=== PATIENT | female | born 1995 | race African-American/Black ===

== ENCOUNTER 2020-05-10 12:51 | Emergency (ER) | payer MEDICAID, SELFPAY ==
[2020-05-10] VITALS (11 sets, daily range): BP systolic 100–121; BP diastolic 49–80; PULSE 71–85; RESP 16–22; TEMP 36.6–37.2; O2SAT 100; BMI 34.4
--- NOTE | 2020-05-10 14:29 | ECG_ITS ---
Test Reason : HART Blood Pressure : / mmHG Vent. Rate : 079 BPM Atrial Rate : 079 BPM P-R Int : 118 ms QRS Dur : 084 ms QT Int : 382 ms P-R-T Axes : 013 025 007 degrees QTc Int : 438 ms Normal sinus rhythm Normal ECG No previous ECGs available Referred By: My Gutierrez Electronically Signed By:ZANDRA ANDRES
--- NOTE | 2020-05-10 14:46 | ED.FEMALEGU ---
HPI - Female Genitourinary General Chief complaint: Vaginal Bleeding Stated complaint: vag bleed Time Seen by Provider: 05/10/20 14:21 Source: patient Limitations: no limitations History of Present Illness HPI Narrative: 24-year-old female to male transgender here with complaints of vaginal bleeding for the last month. Patient tells me she has been using 2-3 pads per day bright red bleeding with clots. She has some bilateral lower pelvic cramping that is associated with this. She also is feeling lightheaded with position changes, some dyspnea on exertion and palpitations. Sexually active females only. No concern for . History of heavy and irregular bleeding in the past requiring blood transfusion. Did have a Nexplanon in place but this was removed 2 years ago. Since then she has had irregular bleeding but this has not been heavy until this month. She had been taking testosterone but stopped this approximately 1 year ago. Last Pap smear 2020 and reportedly normal. MD elicited complaint: vaginal bleeding Onset (ago): month(s) (1 month ) Severity: mild Vaginal bleeding: moderate, bright red and clots Associated symptoms: abdominal pain, shortness of breath and weakness Sexual activity: Yes Patient : No Related Data Previous Rx's Medication Instructions Recorded ferrous sulfate 325 mg PO DAILY #30 tab 05/10/20 medroxyprogesterone [Provera] 10 mg PO DAILY 14 Days #14 tab 05/10/20 Allergies Allergy/AdvReac Type Severity Reaction Status Date / Time No Known Allergies Allergy Unverified 01/04/20 18:06 Review of Systems Review of Systems: Yes all other systems are reviewed and are negative Constitutional: Constitutional: Reports no additional constitutional complaints, Denies body ache(s), Denies chills, Denies fever(s), Denies headache(s) and Denies weakness Eyes: Eyes: Reports no additional eye complaints and Denies change in vision ENT: Reports system reviewed and no additional complaints, except as documented, Reports dizziness (lightheadeness ), Denies headache(s), Denies nasal congestion, Denies nasal discharge and Denies neck pain Cardiovascular: Cardiovascular: Reports no additional cardiovascular complaints, Denies chest pain, Denies leg edema, Reports palpitations, Denies dyspnea and Reports dyspnea on exertion Respiratory: Respiratory: Reports no additional respiratory complaints, Denies cough, Denies dyspnea and Reports dyspnea on exertion Gastrointestinal: Gastrointestinal: Reports no additional gastrointestinal complaints, Denies abdominal pain, Denies diarrhea, Denies nausea and Denies vomiting Genitourinary: Genitourinary: Reports no additional female genitourinary complaints, Reports abnormal vaginal bleeding, Denies dysuria, Reports pelvic pain, Denies urinary incontinence, Denies vaginal discharge, Denies vaginal odor and Denies vaginal pruritus Musculoskeletal: Musculoskeletal: Reports no additional musculoskeletal complaints, Denies back pain, Denies arthralgias, Denies joint swelling, Denies neck pain, Denies numbness and Denies tingling Integumentary/Breasts: Skin/Breast: Reports system reviewed and no additional complaints, except as docu and Denies rash Neurologic: Reports system reviewed and no additional complaints, except as documented, Denies Abnormal speech present, Reports dizziness (lightheadeness ), Denies headache(s), Denies numbness, Denies tingling and Denies weakness Endocrine: Endocrine: Reports palpitations PMFSH Past Medical History Attestation statement: The following information was validated with the patient. Source: old records reviewed and nursing notes reviewed Medical History Anemia Surgical History H/O hernia repair History of tonsillectomy Social History Social History Smoking Status: Current some day smoker Use of substances other than those prescribed or required for medical reasons: Yes Substance Use Type: Marijuana Substance Use Frequency: Occasionally Advance Directives: No Advance Directives Information Provided: No Physical Exam Vital Signs: Vital Signs: Last Vital Signs Temp 98.2 F 05/10/20 20:39 Pulse 85 05/10/20 20:39 Resp 18 05/10/20 20:39 BP 100/50 L 05/10/20 20:39 Pulse Ox 100 05/10/20 20:00 Body Mass Index 34.4 Const: General: cooperative, healthy appearing, comfortable and no acute distress Orientation/consciousness: patient oriented x3 Limitations: no limitations HENMT: Head: Yes normal to inspection Ears: hearing grossly normal bilaterally General nose exam: Normal external nose present Face and sinus: Yes normal facial exam Mouth: Normal oral and palatal mucosa present Throat: Yes posterior oropharynx normal Eyes: General: appearance normal, both eyes and all related structures Pupils: Equal, round and reactive pupils present Neck: Neck: Yes normal visual inspection Chest: Chest palpation & inspection: normal inspection of the chest Resp: Effort & Inspection: normal respiratory effort Auscultation: clear to auscultation bilaterally Cardio: Rate: regular rate Rhythm: regular rhythm Peripheral pulses: Peripheral pulses 2+ throughout GI: Inspection: Yes normal to inspection Palpation (GI): Soft to palpation and Tenderness to palpation present (GI) (Mild bilateral lower pelvic) Auscultation: normal bowel sounds : Other: Moderate amount of bright red blood in the vaginal canal which was evacuated. 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 Speculum Exam - Vagina: vaginal bleeding Speculum Exam - Cervix: normal appearance of the cervix Bimanual exam- vagina & uterus: normal bimanual exam Bimanual Exam- Adnexa, other: normal adnexae OB/external & speculum: vaginal bleeding Back/Spine/Pelvis: Thoracic/Lumbar Spine: thoracic and lumbar spine normal to inspection Skin: General skin exam: no rashes or lesions noted Neuro: General: patient oriented x3, no focal motor deficits and normal sensation to monofilament Cranial nerves: Yes Equal, round and reactive pupils present Cognition (Neuro): normal cognition Speech: No Abnormal speech present Gait exam (Neuro): Normal gait present Motor exam (neuro): 5/5 motor strength present throughout Extrem: General: Yes normal to inspection Course Course Course Narrative: 34-year-old female here with heavy vaginal bleeding for 1 month. Associated with pelvic cramping, shortness of breath with exertion, palpitations and generalized weakness and lightheadedness. Will check labs, UA, urine times, T&S. Check pelvic exam. 1540-hemoglobin 6.2. Symptomatic anemia. Patient consented for 2 units of blood. Will d/w with Dr Childers from OB. 1610-D/w with Dr Childers from [employer] ROOM SUPERVISOR. Recommended progesterone daily 10mg, f/u outpatient with CONTROL ROOM SUPERVISOR, hematology consult for r/o bleeding disorders. 2100- negative. Plan for repeat CBC post transfusion and d/c. Sign out to Josefa JOHNS pending above. MDM - Female Genitourinary MDM Narrative Medical decision making narrative: , DUB, symptomatic anemia Medical Records Attestation: I reviewed the patient's medical records. Lab Data Attestation: I reviewed the patient's lab results. Result diagrams: 05/10/20 14:52 05/10/20 14:52 Labs: Lab Results 05/10/20 05/10/20 05/10/20 Range/Units 14:52 14:52 15:36 WBC 4.3 L (4.8-10.8) X10*3/uL RBC 3.07 L (4.20-5.50) X10*6/uL Hgb 6.2 L* (12.0-16.0) g/dl Hct 21.1 L (37-47) % MCV 68.7 L (80-98) fL MCH 20.2 L (27.0-33.0) pg MCHC 29.4 L (31.0-35.0) g/dl RDW 16.9 H (11.0-16.0) % Plt Count 555 H (160-400) X10*3/uL MPV 8.4 L (9.4-12.3) fL Immature Gran % (Auto) 0.5 H (0.0-0.4) % Neut % (Auto) 47.7 (45-73) % Lymph % (Auto) 41.0 H (20-40) % [place] % (Auto) 6.3 (2-11) % Eos % (Auto) 4.0 (0-4) % Baso % (Auto) 0.5 (0-2) % Lymph # (Auto) 1.8 (1.2-4.9) X10*3/uL [place] # (Auto) 0.3 (0.1-1.2) X10*3/uL Eos # (Auto) 0.2 (0.0-0.4) X10*3/uL Baso # (Auto) 0.0 (0.0-0.2) X10*3/uL Abs Immat Gran (auto) 0.02 (0.00-0.03) X10*3/uL Absolute Neuts (auto) 2.0 (2.0-8.3) X10*3/uL Absolute Nucleated RBC 0.020 H (0.0-0.012) X10*3/uL Nucleated RBC % (auto) 0.5 H (0.0-0.2) /100WBC PT (10.8-13.0) SEC INR (0.9-1.1) Sodium 135 (135-145) mmol/L Potassium 4.4 (3.3-5.1) mmol/l Chloride 104 (96-108) mmol/L Carbon Dioxide 23 (22-29) mmol/L Anion Gap 12 (12-20) BUN 10 (9-16) mg/dL Creatinine 0.80 (0.5-1.4) mg/dL Estim Creat Clear Calc 103.8 Estimated GFR > 60 Random Glucose 91 (60-115) mg/dL Calcium 8.8 (8.4-10.2) mg/dL Urine Color Urine Appearance Urine pH (5.0-8.0) Ur Specific [place] (1.005-1.025) Urine Protein (NEG-TRACE) MG/DL Urine Glucose (UA) (NEG) MG/DL Urine Ketones (NEG) MG/DL Urine Blood (NEG) Urine Nitrite (NEG) Ur Leukocyte Esterase (NEG) Urine RBC (0) /HPF Urine WBC (0-4) /HPF Ur Squamous Epith Cells /LPF Urine Bacteria /LPF Urine Test (NEGATIVE) Blood Type O Positive Antibody Screen NEGATIVE Crossmatch See Detail 05/10/20 05/10/20 Range/Units 15:55 20:37 WBC (4.8-10.8) X10*3/uL RBC (4.20-5.50) X10*6/uL Hgb (12.0-16.0) g/dl Hct (37-47) % MCV (80-98) fL MCH (27.0-33.0) pg MCHC (31.0-35.0) g/dl RDW (11.0-16.0) % Plt Count (160-400) X10*3/uL MPV (9.4-12.3) fL Immature Gran % (Auto) (0.0-0.4) % Neut % (Auto) (45-73) % Lymph % (Auto) (20-40) % [place] % (Auto) (2-11) % Eos % (Auto) (0-4) % Baso % (Auto) (0-2) % Lymph # (Auto) (1.2-4.9) X10*3/uL [place] # (Auto) (0.1-1.2) X10*3/uL Eos # (Auto) (0.0-0.4) X10*3/uL Baso # (Auto) (0.0-0.2) X10*3/uL Abs Immat Gran (auto) (0.00-0.03) X10*3/uL Absolute Neuts (auto) (2.0-8.3) X10*3/uL Absolute Nucleated RBC (0.0-0.012) X10*3/uL Nucleated RBC % (auto) (0.0-0.2) /100WBC PT 13.7 H (10.8-13.0) SEC INR 1.2 H (0.9-1.1) Sodium (135-145) mmol/L Potassium (3.3-5.1) mmol/l Chloride (96-108) mmol/L Carbon Dioxide (22-29) mmol/L Anion Gap (12-20) BUN (9-16) mg/dL Creatinine (0.5-1.4) mg/dL Estim Creat Clear Calc Estimated GFR Random Glucose (60-115) mg/dL Calcium (8.4-10.2) mg/dL Urine Color RED Urine Appearance CLOUDY Urine pH 7.0 (5.0-8.0) Ur Specific [place] 1.010 (1.005-1.025) Urine Protein 3+ H (NEG-TRACE) MG/DL Urine Glucose (UA) NEG (NEG) MG/DL Urine Ketones 5 (NEG) MG/DL Urine Blood 3+ H (NEG) Urine Nitrite POS H (NEG) Ur Leukocyte Esterase TRACE H (NEG) Urine RBC 76-150 H (0) /HPF Urine WBC 0-2 (0-4) /HPF Ur Squamous Epith Cells 1+ /LPF Urine Bacteria 1+ /LPF Urine Test NEGATIVE (NEGATIVE) Blood Type Antibody Screen Crossmatch ECG Data Attestation: I personally reviewed and interpreted this ECG as follows: ECG interpretation date: 05/10/20 ECG interpretation time: 15:05 Interpretation: NSR rate 79, normal pr, normal qrs, normal qtc Discharge Plan Discharge Clinical Impression: Vaginal bleeding Anemia Qualifiers: Anemia type: iron deficiency Iron deficiency anemia type: unspecified iron deficiency Qualified Code(s): D50.9 - Iron deficiency anemia, unspecified Patient Disposition: Home, Self-Care Instructions: Dysfunctional Uterine Bleeding (ED), Anemia (ED) Additional Instructions: Start your medications as soon as possible 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 Call and make an appointment Prescriptions: New medroxyprogesterone [Provera] 10 mg tablet 10 mg PO DAILY 14 Days Qty: 14 RF: 0 ferrous sulfate 325 mg (65 mg iron) tablet 325 mg PO DAILY Qty: 30 RF: 0 Referrals: Davonte Ricci MD [Physician] - 2 days
[2020-05-10 14:57] LABS: MANUAL DIFF FLAG NO
[2020-05-10 14:58] LABS: Basophils Percent Auto 0.5 % (0-2); Eosinophils Absolute Auto 0.2 X10*3/uL (0.0-0.4); Hematocrit 21.1 % (37-47); Imm Gran Abs Auto 0.02 X10*3/uL (0.00-0.03); Imm Gran Pct Auto 0.5 % (0.0-0.4); Lymphocytes Absolute Auto 1.8 X10*3/uL (1.2-4.9); Mean Corpuscular HGB Conc 29.4 g/dl (31.0-35.0); Mean Corpuscular Hemoglobin 20.2 pg (27.0-33.0); Mean Corpuscular Volume 68.7 fL (80-98); Mean Platelet Volume 8.4 fL (9.4-12.3); Monocytes Absolute Auto 0.3 X10*3/uL (0.1-1.2); Monocytes Percent Auto 6.3 % (2-11); NRBC Pct Auto 0.5 /100WBC (0.0-0.2); Neutrophils Percent Auto 47.7 % (45-73); Platelet Count 555 X10*3/uL (160-400); Red Blood Count 3.07 X10*6/uL (4.20-5.50); Red Cell Distribution Width 16.9 % (11.0-16.0)
[2020-05-10 15:06] LABS: Hemoglobin 6.2 g/dl (12.0-16.0); White Blood Count 4.3 X10*3/uL (4.8-10.8)
[2020-05-10 15:27] LABS: Anion Gap 12 (12-20); Blood Urea Nitrogen 10 mg/dL (9-16); Calcium 8.8 mg/dL (8.4-10.2); Carbon Dioxide 23 mmol/L (22-29); Chloride 104 mmol/L (96-108); Creatinine Clr Calc Pharmacy 103.8; Estimated Glomerular Filt Rate > 60; Glucose Random 91 mg/dL (60-115); Potassium 4.4 mmol/l (3.3-5.1); Sodium 135 mmol/L (135-145)
[2020-05-10 16:07] LABS: INTERNATIONAL NORM RATIO 1.2 (0.9-1.1); Prothrombin Time 13.7 SEC (10.8-13.0)
--- NOTE | 2020-05-10 19:10 | PC.NURSE ---
first unit PRBCs transfused. Pt denies pain or sx of transfusion reaction. Pt awaits second unit.
--- NOTE | 2020-05-10 20:43 | PC.NURSE ---
2nd unit of blood infusing. pt rand well. urine collected and sent. pt deneis pain, talking on her cell phone.
[2020-05-10 20:45] LABS: Glucose Urine UA NEG (NEG); Leukocyte Esterase Urine TRACE (NEG); Nitrite Urine POS (NEG); UACC Culture Trigger YES; Urine Blood 3+ (NEG); Urine Ketones 5 MG/DL (NEG); Urine Protein 3+ MG/DL (NEG-TRACE)
[2020-05-10 20:46] LABS: Appearance Urine CLOUDY; Color Urine RED
[2020-05-10 20:48] LABS: UPreg QC Valid YES; Urine Pregnancy NEGATIVE (NEGATIVE)
[2020-05-10 20:53] LABS: Bacteria Urine 1+ /LPF; Squamous Epithelial Cell Urine 1+ /LPF; WBC Urine 0-2 /HPF (0-4)
[2020-05-10 23:39] LABS: Basophils Percent Auto 0.4 % (0-2); Eosinophils Absolute Auto 0.2 X10*3/uL (0.0-0.4); Eosinophils Percent Auto 3.2 % (0-4); Hemoglobin 9.3 g/dl (12.0-16.0); Imm Gran Abs Auto 0.01 X10*3/uL (0.00-0.03); Imm Gran Pct Auto 0.2 % (0.0-0.4); Lymphocytes Absolute Auto 2.5 X10*3/uL (1.2-4.9); Lymphocytes Percent Auto 44.3 % (20-40); MANUAL DIFF FLAG NO; Mean Corpuscular Hemoglobin 23.4 pg (27.0-33.0); Mean Corpuscular Volume 75.6 fL (80-98); Mean Platelet Volume 8.5 fL (9.4-12.3); Monocytes Absolute Auto 0.4 X10*3/uL (0.1-1.2); Neutrophils Absolute Auto 2.5 X10*3/uL (2.0-8.3); Neutrophils Percent Auto 44.9 % (45-73); Platelet Count 490 X10*3/uL (160-400); Red Blood Count 3.97 X10*6/uL (4.20-5.50); Red Cell Distribution Width 20.4 % (11.0-16.0); White Blood Count 5.6 X10*3/uL (4.8-10.8)
[2020-05-11] VITALS: BP 112/70; BP 119/66; PULSE 72; PULSE 75; RESP 18; O2SAT 100
[2020-05-11 00:22] VITALS: BP 124/76; PULSE 74
[2020-05-11 00:23] VITALS: BP 124/75; PULSE 78
--- NOTE | 2020-05-30 21:03 | PC.NURSE ---
addemdum late entry blood infused on 05/10/20 completed at 05/10/20 at 2200. no complications pt rand well.
== END 2020-05-11 00:53 | disposition home or self-care (01) ==
PROVIDERS: Nurse Practitioner Family; Emergency Provider Internal Medicine; PCP Family Medicine
DX: N93.9 Abnormal uterine and vaginal bleeding, unspecified (principal); D50.9 Iron deficiency anemia, unspecified; F17.200 Nicotine dependence, unspecified, uncomplicated
CPT/HCPCS: 36415; 36430; 80048; 81001; 81003; 81025; 85025; 85610; 86850; 86900; 86901; 86923; 87086; 93005; 99285; P9016

== ENCOUNTER 2020-06-01 15:34 | Emergency (ER) | payer MEDICAID, SELFPAY ==
--- NOTE | ~2020-06-01 | US_ITS ---
Examination: US transvaginal, US pelvic complete Indication: vaginal bleeding Comparison: No pertinent prior studies are currently available for comparison. Technique: Multiple sonographic transabdominal and endovaginal views the pelvis were obtained. Endovaginal images were needed to better assess the anatomy. Findings: Uterus is anteroverted measuring 6.6 x 3.5 x 5.0 cm. Endometrial thickness is 1.2 cm. Right ovary measures 3.8 x 2.4 x 2.7 cm for a volume of 12.9 mL. Left ovary measures 3.4 x 2.2 x 2.4 cm for a volume of 9.4 mL. Both ovaries demonstrate multiple small peripheral follicles. No significant free fluid. US/US transvaginal Impression: Endometrial thickness 1.2 cm within normal limits for patient's age and could be clinically correlated with menstrual cycle. Multiple small bilateral follicles are seen with a peripheral predominance. This appearance could be seen with polycystic ovary disease disease and could be clinically correlated.
--- NOTE | ~2020-06-01 | US_ITS ---
Examination: US transvaginal, US pelvic complete Indication: vaginal bleeding Comparison: No pertinent prior studies are currently available for comparison. Technique: Multiple sonographic transabdominal and endovaginal views the pelvis were obtained. Endovaginal images were needed to better assess the anatomy. Findings: Uterus is anteroverted measuring 6.6 x 3.5 x 5.0 cm. Endometrial thickness is 1.2 cm. Right ovary measures 3.8 x 2.4 x 2.7 cm for a volume of 12.9 mL. Left ovary measures 3.4 x 2.2 x 2.4 cm for a volume of 9.4 mL. Both ovaries demonstrate multiple small peripheral follicles. No significant free fluid. US/US pelvic complete Impression: Endometrial thickness 1.2 cm within normal limits for patient's age and could be clinically correlated with menstrual cycle. Multiple small bilateral follicles are seen with a peripheral predominance. This appearance could be seen with polycystic ovary disease disease and could be clinically correlated.
[2020-06-01 16:16] VITALS: BP 126/48; PULSE 77; RESP 18; TEMP 36.8; O2SAT 98; BMI 34.4
[2020-06-01 16:44] LABS: MANUAL DIFF FLAG NO
[2020-06-01 16:45] LABS: Basophils Percent Auto 0.3 % (0-2); Eosinophils Absolute Auto 0.3 X10*3/uL (0.0-0.4); Eosinophils Percent Auto 4.1 % (0-4); Hematocrit 27.7 % (37-47); Hemoglobin 8.3 g/dl (12.0-16.0); Imm Gran Abs Auto 0.02 X10*3/uL (0.00-0.03); Imm Gran Pct Auto 0.3 % (0.0-0.4); Lymphocytes Absolute Auto 1.7 X10*3/uL (1.2-4.9); Lymphocytes Percent Auto 26.3 % (20-40); Mean Corpuscular Hemoglobin 23.6 pg (27.0-33.0); Mean Corpuscular Volume 78.7 fL (80-98); Mean Platelet Volume 8.7 fL (9.4-12.3); Monocytes Absolute Auto 0.3 X10*3/uL (0.1-1.2); Monocytes Percent Auto 4.7 % (2-11); Neutrophils Absolute Auto 4.1 X10*3/uL (2.0-8.3); Neutrophils Percent Auto 64.3 % (45-73); Platelet Count 701 X10*3/uL (160-400); Red Blood Count 3.52 X10*6/uL (4.20-5.50); Red Cell Distribution Width 23.1 % (11.0-16.0); White Blood Count 6.3 X10*3/uL (4.8-10.8)
[2020-06-01 16:58] LABS: INTERNATIONAL NORM RATIO 1.1 (0.9-1.1); Prothrombin Time 12.8 SEC (10.8-13.0)
--- NOTE | 2020-06-01 17:12 | ED.FEMALEGU ---
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 Patient is sexually active only females and patient ruled out possibility of . Related Data Previous Rx's Medication Instructions Recorded ferrous sulfate 325 mg PO DAILY #30 tab 05/10/20 medroxyprogesterone [Provera] 10 mg PO DAILY 14 Days #14 tab 05/10/20 Allergies Allergy/AdvReac Type Severity Reaction Status Date / Time No Known Allergies Allergy Verified 06/01/20 16:22 Review of Systems Review of Systems: All other systems are reviewed and are negative Constitutional: Reports as per HPI and Reports no additional constitutional complaints Eyes: Reports as per HPI and Reports no additional eye complaints Reports system reviewed and no additional complaints, except as documented Cardiovascular: Reports as per HPI and Reports no additional cardiovascular complaints Respiratory: Reports as per HPI and Reports no additional respiratory complaints Gastrointestinal: Reports as per HPI and Reports no additional gastrointestinal complaints Genitourinary: Reports no additional female genitourinary complaints Musculoskeletal: Reports no additional musculoskeletal complaints Skin/Breast: Reports system reviewed and no additional complaints, except as docu Psychiatric: Reports no additional psychiatric complaints Endocrine: Reports no additional endocrine complaints Hematologic/Lymphatic: Reports no additional hematologic/lymphatic complaints Allergic/Immunologic: Reports no additional allergic/immunologic complaints Reports system reviewed and no additional complaints, except as documented and Reports Abnormal speech present [facility] Past Medical History Medical History Anemia Surgical History H/O hernia repair History of tonsillectomy Social History Social History Smoking Status: Light tobacco smoker Use of substances other than those prescribed or required for medical reasons: Yes Substance Use Type: Marijuana Substance Use Frequency: Daily Advance Directives: No Advance Directives Information Provided: Yes Physical Exam Vital Signs: Vital Signs: Last Vital Signs Temp 98.2 F 06/01/20 16:16 Pulse 76 06/01/20 17:36 Resp 18 06/01/20 17:36 BP 109/71 06/01/20 17:36 Pulse Ox 100 06/01/20 17:36 Body Mass Index 34.4 Vital signs have been reviewed as normal and appeared to be correct. Blood pressure normal. Heart rate normal. Respiration rate normal. Temperature normal. Oxygen saturation normal. Appearance: Alert. Oriented X3. No acute distress. Head: Normal external exam. Normocephalic. Atraumatic. No [place] signs noted. No raccoon eyes noted Eyes: PERRLA. EOMI. Conjunctiva and sclera normal. Eyelids normal. ENT: TM's Normal. Pharynx normal. Uvula midline. Moist mucous membranes. No trismus noted. No drooling noted. No muffled voice noted. Neck: Normal inspection. Neck supple. FROM. No adenopathy. Thyroid Normal. No meningeal signs. No neck mass noted. CVS: Normal heart rate and rhythm. Heart sound normal. No murmurs noted. Pulses normal throughout. Respiratory: No respiratory distress. Painless inspiration. Breath sounds normal. No wheezes/rales/rhonchi noted. Chest nontender. No accessory muscle usage noted or decreased air movement noted. Abdomen: Soft and nontender. Bowel sounds normal in all 4 quadrants. No distention noted. No organomegaly noted. No visible injury noted. Pelvic: Normal inspection, small amount of blood in the vault no blood clots, os is closed, no cultures, no CMT tenderness. Back: No CVA tenderness. Full range of motion noted. Skin: Skin warm and dry. Normal skin color. Normal skin turgor. No rashes/lesions/lacerations noted. Extremities: No lower extremity edema. Extremities exhibit normal range of motion. Extremities nontender. Neuro: Oriented X 3. No motor deficit. No sensory deficit. Reflexes normal. Course Course Course Narrative: 24-year-old female transgender to female, presented with few weeks of vaginal bleed likely due to hormonal disturbance, patient used to be on testosterone then was discontinued and patient started to bleed after. Hemodynamically stable, anemic H&H is 8.3/27.7 within a normal range for the patient. Pelvic ultrasound is unremarkable for obvious abnormalities. Patient was instructed to follow-up with OBGYN to place her back on her hormonal therapy. MDM - Female Genitourinary Lab Data Attestation: I reviewed the patient's lab results. Result diagrams: 06/01/20 16:33 06/01/20 16:33 Labs: Lab Results 06/01/20 06/01/20 06/01/20 Range/Units 16:33 16:33 16:33 WBC 6.3 (4.8-10.8) X10*3/uL RBC 3.52 L (4.20-5.50) X10*6/uL Hgb 8.3 L (12.0-16.0) g/dl Hct 27.7 L (37-47) % MCV 78.7 L (80-98) fL MCH 23.6 L (27.0-33.0) pg MCHC 30.0 L (31.0-35.0) g/dl RDW 23.1 H (11.0-16.0) % Plt Count 701 H D (160-400) X10*3/uL MPV 8.7 L (9.4-12.3) fL Immature Gran % (Auto) 0.3 (0.0-0.4) % Neut % (Auto) 64.3 (45-73) % Lymph % (Auto) 26.3 (20-40) % Bond % (Auto) 4.7 (2-11) % Eos % (Auto) 4.1 H (0-4) % Baso % (Auto) 0.3 (0-2) % Lymph # (Auto) 1.7 (1.2-4.9) X10*3/uL Bond # (Auto) 0.3 (0.1-1.2) X10*3/uL Eos # (Auto) 0.3 (0.0-0.4) X10*3/uL Baso # (Auto) 0.0 (0.0-0.2) X10*3/uL Abs Immat Gran (auto) 0.02 (0.00-0.03) X10*3/uL Absolute Neuts (auto) 4.1 (2.0-8.3) X10*3/uL Absolute Nucleated RBC 0.000 (0.0-0.012) X10*3/uL Nucleated RBC % (auto) 0.0 (0.0-0.2) /100WBC PT 12.8 (10.8-13.0) SEC INR 1.1 (0.9-1.1) Sodium (135-145) mmol/L Potassium (3.3-5.1) mmol/L Chloride (96-108) mmol/L Carbon Dioxide (22-29) mmol/L Anion Gap (12-20) BUN (9-16) mg/dL Creatinine (0.5-1.4) mg/dL Estim Creat Clear Calc Estimated GFR Random Glucose (60-115) mg/dL Calcium (8.4-10.2) mg/dL Beta HCG, Quant mIU/mL Blood Type O Positive 06/01/20 Range/Units 16:33 WBC (4.8-10.8) X10*3/uL RBC (4.20-5.50) X10*6/uL Hgb (12.0-16.0) g/dl Hct (37-47) % MCV (80-98) fL MCH (27.0-33.0) pg MCHC (31.0-35.0) g/dl RDW (11.0-16.0) % Plt Count (160-400) X10*3/uL MPV (9.4-12.3) fL Immature Gran % (Auto) (0.0-0.4) % Neut % (Auto) (45-73) % Lymph % (Auto) (20-40) % Bond % (Auto) (2-11) % Eos % (Auto) (0-4) % Baso % (Auto) (0-2) % Lymph # (Auto) (1.2-4.9) X10*3/uL Bond # (Auto) (0.1-1.2) X10*3/uL Eos # (Auto) (0.0-0.4) X10*3/uL Baso # (Auto) (0.0-0.2) X10*3/uL Abs Immat Gran (auto) (0.00-0.03) X10*3/uL Absolute Neuts (auto) (2.0-8.3) X10*3/uL Absolute Nucleated RBC (0.0-0.012) X10*3/uL Nucleated RBC % (auto) (0.0-0.2) /100WBC PT (10.8-13.0) SEC INR (0.9-1.1) Sodium 137 (135-145) mmol/L Potassium 4.2 (3.3-5.1) mmol/L Chloride 103 (96-108) mmol/L Carbon Dioxide 25 (22-29) mmol/L Anion Gap 13 (12-20) BUN 12 (9-16) mg/dL Creatinine 0.84 (0.5-1.4) mg/dL Estim Creat Clear Calc 98.9 Estimated GFR > 60 Random Glucose 121 H (60-115) mg/dL Calcium 8.9 (8.4-10.2) mg/dL Beta HCG, Quant < 2 mIU/mL Blood Type Imaging Data Pelvic ultrasound: Radiologist's impression: Impression: Endometrial thickness 1.2 cm within normal limits for patient's age and could be clinically correlated with menstrual cycle. Multiple small bilateral follicles are seen with a peripheral predominance. This appearance could be seen with polycystic ovary disease disease and could be clinically correlated. Discharge Plan Discharge Clinical Impression: Dysfunctional uterine bleeding Patient Disposition: Home, Self-Care Instructions: Dysfunctional Uterine Bleeding (ED) Prescriptions: No Action medroxyprogesterone [Provera] 10 mg tablet 10 mg PO DAILY 14 Days Qty: 14 RF: 0 ferrous sulfate 325 mg (65 mg iron) tablet 325 mg PO DAILY Qty: 30 RF: 0 Referrals: Mignon Tolentino MD [Primary Care Provider] - 2 days
[2020-06-01 17:18] LABS: Anion Gap 13 (12-20); Blood Urea Nitrogen 12 mg/dL (9-16); Calcium 8.9 mg/dL (8.4-10.2); Carbon Dioxide 25 mmol/L (22-29); Chloride 103 mmol/L (96-108); Creatinine Clr Calc Pharmacy 98.9; Estimated Glomerular Filt Rate > 60; Glucose Random 121 mg/dL (60-115); Potassium 4.2 mmol/L (3.3-5.1); Sodium 137 mmol/L (135-145)
[2020-06-01 17:25] LABS: HCG Quantitative < 2 mIU/mL
[2020-06-01 17:36] VITALS: BP 109/71; PULSE 76; RESP 18; O2SAT 100
--- NOTE | 2020-06-01 19:15 | PC.NURSE ---
PELVIC EXAM PERFORMED BY DR. PASCUAL WITH RN WITNESS.
== END 2020-06-01 19:22 | disposition home or self-care (01) ==
PROVIDERS: Emergency Provider Emergency Medicine; PCP Family Medicine
DX: N93.8 Other specified abnormal uterine and vaginal bleeding (principal); F17.210 Nicotine dependence, cigarettes, uncomplicated
CPT/HCPCS: 36415; 76830; 76856; 80048; 84702; 85025; 85610; 86900; 86901; 99284

== ENCOUNTER 2020-08-01 07:58 | Outpatient (REF) | payer MEDICAID, SELFPAY | END 2020-08-01 07:59 | disposition home or self-care (01) | LOC: HO.MDS 07:58 | PROVIDERS: PCP Family Medicine; Visit Provider Internal Medicine | DX: D50.9 Iron deficiency anemia, unspecified (principal) | CPT/HCPCS: 96365; 96366; J1200; J1750; Q0163 ==

== ENCOUNTER 2020-09-27 10:25 | Emergency (ER) | payer MEDICAID, SELFPAY ==
[2020-09-27 11:27] VITALS: BP 118/64; PULSE 71; RESP 18; TEMP 36.9; O2SAT 100; BMI 33.0
[2020-09-27 12:09] LABS: MANUAL DIFF FLAG NO
[2020-09-27 12:10] LABS: Basophils Percent Auto 0.5 % (0-2); Eosinophils Absolute Auto 0.4 X10*3/uL (0.0-0.4); Eosinophils Percent Auto 7.7 % (0-4); Hemoglobin 7.5 g/dl (12.0-16.0); Imm Gran Abs Auto 0.02 X10*3/uL (0.00-0.03); Imm Gran Pct Auto 0.4 % (0.0-0.4); Lymphocytes Absolute Auto 1.7 X10*3/uL (1.2-4.9); Lymphocytes Percent Auto 29.8 % (20-40); Mean Corpuscular Hemoglobin 24.2 pg (27.0-33.0); Mean Corpuscular Volume 80.6 fL (80-98); Mean Platelet Volume 8.8 fL (9.4-12.3); Monocytes Absolute Auto 0.3 X10*3/uL (0.1-1.2); Monocytes Percent Auto 4.8 % (2-11); NRBC Pct Auto 0.5 /100WBC (0.0-0.2); Neutrophils Absolute Auto 3.2 X10*3/uL (2.0-8.3); Neutrophils Percent Auto 56.8 % (45-73); Platelet Count 447 X10*3/uL (160-400); Red Cell Distribution Width 26.3 % (11.0-16.0); White Blood Count 5.6 X10*3/uL (4.8-10.8)
[2020-09-27 12:22] LABS: INTERNATIONAL NORM RATIO 1.1 (0.9-1.1); Prothrombin Time 13.1 SEC (10.8-13.0)
[2020-09-27 12:41] LABS: Alanine Aminotransferase 12 U/L (0-31); Albumin Level 4.1 g/dL (3.5-5.0); Alkaline Phosphatase 60 U/L (39-117); Anion Gap 11 (12-20); Aspartate Amino Transferase 18 U/L (5-31); Bilirubin Total 0.3 mg/dL (0.0-1.0); Blood Urea Nitrogen 10 mg/dL (9-16); Calcium 8.8 mg/dL (8.4-10.2); Carbon Dioxide 25 mmol/L (22-29); Chloride 107 mmol/L (96-108); Creatinine Clr Calc Pharmacy 98.3; Estimated Glomerular Filt Rate > 60; Glucose Random 92 mg/dL (60-115); Potassium 4.1 mmol/L (3.3-5.1); Sodium 139 mmol/L (135-145); Total Protein 7.3 g/dL (6.5-8.0)
[2020-09-27 12:47] LABS: HCG Quantitative < 2 mIU/mL
[2020-09-27 13:08] LABS: Glucose Urine UA NEG (NEG); Leukocyte Esterase Urine NEG (NEG); Nitrite Urine NEG (NEG); Specific Gravity - Urine 1.025 (1.005-1.025); Urine Blood 3+ (NEG); Urine Ketones NEG (NEG); Urine Protein NEG (NEG-TRACE)
[2020-09-27 13:11] LABS: Appearance Urine CLOUDY; Color Urine YELLOW
[2020-09-27 13:13] LABS: UPreg QC Valid YES; Urine Pregnancy NEGATIVE (NEGATIVE)
[2020-09-27 13:17] LABS: RBC Urine TNTC /HPF (0); Squamous Epithelial Cell Urine 2+ /LPF; WBC Urine 0-2 /HPF (0-4)
[2020-09-27 13:38] VITALS: BP 110/73; PULSE 75; RESP 17; O2SAT 100
--- NOTE | 2020-09-27 13:40 | ED.FEMALEGU ---
HPI - Female Genitourinary General Chief complaint: Vaginal Bleeding Stated complaint: VAGINGAL BLEEDING Time Seen by Provider: 09/27/20 11:48 Source: patient and family (Grandmother at bedside) Mode of arrival: ambulatory Limitations: no limitations History of Present Illness HPI Narrative: 25-year-old female who is transitioning to male with a past medical history of anemia who was using testosterone hormone injections then she switched to the patches although the patches relieving her scars on her legs/discoloration therefore she discontinued the patches as well and is waiting to be approved back for the injections presenting to the ED with complaints of heavy vaginal bleeding for the past 9 weeks using approximately 2-3 pads a day ever since she discontinued the testosterone. She was seen here on 06/01/2020 and she had lab work done as well on 09/24/2020 and her H&H on 09/24/2020 was 7.5 she did not receive a blood transfusion she was sent home with instructions to follow-up with OBGYN. She reports she has tried to call multiple OB GYNs and has been unable to obtain an appointment therefore she came here. She reports the bleeding continues with clots. Intermittent lightheadedness and headaches. Patient denies any other symptoms complaints or concerns at this time. MD elicited complaint: vaginal bleeding Onset (ago): week(s) (9 weeks) Severity: moderate Female Urogenital Radiation: Suprapubic Quality of pain: cramping Consistency: constant and progressively worsening Vaginal discharge: none Vaginal bleeding: heavy, bright red, dark red, clots and # pads per hour (Three) Exacerbating factors: none Relieving factors: none Associated symptoms: abdominal pain and headaches Treatment prior to arrival: none Sexual activity: Yes (With female partners) Patient : No Related Data Previous Rx's Medication Instructions Recorded ferrous sulfate 325 mg PO TID #90 tab 09/27/20 ondansetron HCl [Zofran] 4 mg PO Q8H PRN #14 tab 09/27/20 Allergies Allergy/AdvReac Type Severity Reaction Status Date / Time No Known Allergies Allergy Verified 09/27/20 11:27 Review of Systems Review of Systems: Constitutional : No Fever, No Chills ENT/Mouth : No sore throat, No Rhinorrhea Eyes: No Eye Pain, No Redness Cardiovascular : No Chest Pain, No SOB Respiratory : No Cough, No Sputum, No Wheezing Gastrointestinal : No Nausea, No Vomiting, No Diarrhea, positive abdominal pain, Genitourinary : positive irregular bleeding, No Dysuria, No Urinary Frequency, No pelvic pain, No vaginal discharge, no hematuria Musculoskeletal : No Myalgias Skin : No rash Neuro : No Weakness, No Headache Psych : No Anxiety/Panic, No Depression Heme/Lymph: No bruising, No Lymphadenopathy Endocrine : No Polyuria, No Polydipsia Yes all other systems are reviewed and are negative [facility] Past Medical History Attestation statement: The following information was validated with the patient. Medical History Anemia Surgical History H/O hernia repair History of tonsillectomy Hx of breast reconstruction Family History Family History Maternal Uncle Lung cancer Maternal Aunt Bone cancer Stroke Maternal Grandfather Diabetes Mother Uterine fibroid Maternal Grandmother Uterine fibroid Social History Social History Alcohol intake: current Alcohol intake frequency: holidays/special occasions only Patient Tobacco Use Status: Current someday Tobacco user Substance Use Type: Marijuana Advance Directives: No Advance Directives Information Provided: Yes Patient : No Physical Exam Vital Signs: Vital Signs: Last Vital Signs Temp 98.5 F 09/27/20 11:27 Pulse 75 09/27/20 13:38 Resp 17 09/27/20 13:38 BP 110/73 09/27/20 13:38 Pulse Ox 100 09/27/20 13:38 Body Mass Index 33.0 vital signs have been reviewed as normal and appeared to be correct. Blood pressure normal. Heart rate normal. Respiration rate normal. Temperature normal. Oxygen saturation normal. Appearance: Alert. Oriented X3. No acute distress. Head: Normal external exam. Normocephalic. Atraumatic. No [place] signs noted. No raccoon eyes noted Eyes: PERRLA. EOMI. Conjunctiva and sclera mildly pallor. Eyelids normal. ENT: EAC normal. TM's Normal. Pharynx normal. Uvula midline. Moist mucous membranes. No trismus noted. No drooling noted. No muffled voice noted. Neck: Normal inspection. Neck supple. FROM. No adenopathy. Thyroid Normal. No meningeal signs. No neck mass noted. CVS: Normal heart rate and rhythm. Heart sound normal. No murmurs noted. Pulses normal throughout. Respiratory: No respiratory distress. Painless inspiration. Breath sounds normal. No wheezes/rales/rhonchi noted. Chest nontender. No accessory muscle usage noted or decreased air movement noted. Abdomen: Soft and nontender. Bowel sounds normal in all 4 quadrants. No distention noted. No organomegaly noted. No visible injury noted. : Supervised by JOYA Camacho. Normal external appearance of urethra. No lesions/lacerations or discharge or tenderness noted. Speculum exam normal appearance/palpation of vagina normal. Patient does have bright red blood with a large clot right at the cervix when removed and had the patient cough no active bleeding. Otherwise No abnormal vaginal discharge noted. Otherwise no vaginal erythema. No foreign bodies noted. No vaginal laceration/lesions noted. No tissue present in vagina. No vaginal mass noted. No vaginal swelling noted. No vaginal tenderness noted. Normal appearance of cervix. Normal palpation of cervix. Cervical os is closed. No abnormal cervical discharge noted. No cervical lesion/mass. No Bartholin cyst noted. No cervical motion tenderness noted. Negative chandelier sign. Normal bimanual exam. Uterine size normal. Bladder normal to palpation. Uterine consistency normal. Normal cervical palpation. Uterine mobility normal. Uterine shape normal. Normal adnexa. Normal rectovaginal exam. Back: No CVA tenderness. Full range of motion noted. Skin: Skin warm and dry. Normal skin color. Normal skin turgor. No rashes/lesions/lacerations noted. Extremities: No lower extremity edema. Extremities exhibit normal range of motion. Extremities nontender. Neuro: Oriented X 3. No motor deficit. No sensory deficit. Reflexes normal. Course Course Course Narrative: 25-year-old female who is transitioning to male discontinue testosterone approximately 9 weeks ago presenting to the ED with complaints of heavy vaginal bleeding with clots with associated headaches for the past 9 weeks progressively worsening. No chance of per patient. Was seen here on 06/24/2020 for similar complaint and her H&H was 8.5. Had outpatient lab work on 09/24/2020 and was 7.5. Today her H&H is 7.5 which is stable when compared to 09/24/2020. All other labs are within normal limits. Serum quant negative for . UA revealed blood otherwise no evidence of UTI. Urine is also negative. No imaging indicated as patient had imaging on 06/01/2020 which revealed possibly polycystic ovarian disease. - therefore consulted with Dr. Mccarthy the OBGYN and my supervising doctor Dr. Bey and they both agree that the patient does not need a blood transfusion at this time although the patient does need to be placed on iron supplements at least t.i.d.. Dr. Mccarthy will also be following up with her next week as an outpatient. And I instructed patient to return if any new or worsening symptoms to follow up with [facility]. Patient understands agrees with this plan. MDM - Female Genitourinary Medical Records Attestation: I reviewed the patient's medical records. Lab Data Attestation: I reviewed the patient's lab results. Result diagrams: 09/27/20 11:57 09/27/20 11:57 Labs: Lab Results 09/27/20 09/27/20 09/27/20 Range/Units 11:56 11:57 11:57 WBC 5.6 (4.8-10.8) X10*3/uL RBC 3.10 L (4.20-5.50) X10*6/uL Hgb 7.5 L (12.0-16.0) g/dl Hct 25.0 L (37-47) % MCV 80.6 (80-98) fL MCH 24.2 L (27.0-33.0) pg MCHC 30.0 L (31.0-35.0) g/dl RDW 26.3 H (11.0-16.0) % Plt Count 447 H (160-400) X10*3/uL MPV 8.8 L (9.4-12.3) fL Immature Gran % (Auto) 0.4 (0.0-0.4) % Neut % (Auto) 56.8 (45-73) % Lymph % (Auto) 29.8 (20-40) % [place] % (Auto) 4.8 (2-11) % Eos % (Auto) 7.7 H (0-4) % Baso % (Auto) 0.5 (0-2) % Lymph # (Auto) 1.7 (1.2-4.9) X10*3/uL [place] # (Auto) 0.3 (0.1-1.2) X10*3/uL Eos # (Auto) 0.4 (0.0-0.4) X10*3/uL Baso # (Auto) 0.0 (0.0-0.2) X10*3/uL Abs Immat Gran (auto) 0.02 (0.00-0.03) X10*3/uL Absolute Neuts (auto) 3.2 (2.0-8.3) X10*3/uL Absolute Nucleated RBC 0.030 H (0.0-0.012) X10*3/uL Nucleated RBC % (auto) 0.5 H (0.0-0.2) /100WBC PT (10.8-13.0) SEC INR (0.9-1.1) Sodium 139 (135-145) mmol/L Potassium 4.1 (3.3-5.1) mmol/L Chloride 107 (96-108) mmol/L Carbon Dioxide 25 (22-29) mmol/L Anion Gap 11 L (12-20) BUN 10 (9-16) mg/dL Creatinine 0.82 (0.5-1.4) mg/dL Estim Creat Clear Calc 98.3 Estimated GFR > 60 Random Glucose 92 (60-115) mg/dL Calcium 8.8 (8.4-10.2) mg/dL Total Bilirubin 0.3 (0.0-1.0) mg/dL AST 18 (5-31) U/L ALT 12 (0-31) U/L Alkaline Phosphatase 60 (39-117) U/L Total Protein 7.3 (6.5-8.0) g/dL Albumin 4.1 (3.5-5.0) g/dL Beta HCG, Quant mIU/mL Urine Color Urine Appearance Urine pH (5.0-8.0) Ur Specific [place] (1.005-1.025) Urine Protein (NEG-TRACE) MG/DL Urine Glucose (UA) (NEG) MG/DL Urine Ketones (NEG) MG/DL Urine Blood (NEG) Urine Nitrite (NEG) Ur Leukocyte Esterase (NEG) Urine RBC (0) /HPF Urine WBC (0-4) /HPF Ur Squamous Epith Cells /LPF Urine Bacteria /LPF Urine Test (NEGATIVE) Blood Type O Positive Antibody Screen NEGATIVE 09/27/20 09/27/20 09/27/20 Range/Units 11:57 11:57 12:51 WBC (4.8-10.8) X10*3/uL RBC (4.20-5.50) X10*6/uL Hgb (12.0-16.0) g/dl Hct (37-47) % MCV (80-98) fL MCH (27.0-33.0) pg MCHC (31.0-35.0) g/dl RDW (11.0-16.0) % Plt Count (160-400) X10*3/uL MPV (9.4-12.3) fL Immature Gran % (Auto) (0.0-0.4) % Neut % (Auto) (45-73) % Lymph % (Auto) (20-40) % [place] % (Auto) (2-11) % Eos % (Auto) (0-4) % Baso % (Auto) (0-2) % Lymph # (Auto) (1.2-4.9) X10*3/uL [place] # (Auto) (0.1-1.2) X10*3/uL Eos # (Auto) (0.0-0.4) X10*3/uL Baso # (Auto) (0.0-0.2) X10*3/uL Abs Immat Gran (auto) (0.00-0.03) X10*3/uL Absolute Neuts (auto) (2.0-8.3) X10*3/uL Absolute Nucleated RBC (0.0-0.012) X10*3/uL Nucleated RBC % (auto) (0.0-0.2) /100WBC PT 13.1 H (10.8-13.0) SEC INR 1.1 (0.9-1.1) Sodium (135-145) mmol/L Potassium (3.3-5.1) mmol/L Chloride (96-108) mmol/L Carbon Dioxide (22-29) mmol/L Anion Gap (12-20) BUN (9-16) mg/dL Creatinine (0.5-1.4) mg/dL Estim Creat Clear Calc Estimated GFR Random Glucose (60-115) mg/dL Calcium (8.4-10.2) mg/dL Total Bilirubin (0.0-1.0) mg/dL AST (5-31) U/L ALT (0-31) U/L Alkaline Phosphatase (39-117) U/L Total Protein (6.5-8.0) g/dL Albumin (3.5-5.0) g/dL Beta HCG, Quant < 2 mIU/mL Urine Color YELLOW Urine Appearance CLOUDY Urine pH 6.0 (5.0-8.0) Ur Specific [place] 1.025 (1.005-1.025) Urine Protein NEG (NEG-TRACE) MG/DL Urine Glucose (UA) NEG (NEG) MG/DL Urine Ketones NEG (NEG) MG/DL Urine Blood 3+ H (NEG) Urine Nitrite NEG (NEG) Ur Leukocyte Esterase NEG (NEG) Urine RBC TNTC H (0) /HPF Urine WBC 0-2 (0-4) /HPF Ur Squamous Epith Cells 2+ /LPF Urine Bacteria NONE /LPF Urine Test (NEGATIVE) Blood Type Antibody Screen 09/27/20 Range/Units 12:51 WBC (4.8-10.8) X10*3/uL RBC (4.20-5.50) X10*6/uL Hgb (12.0-16.0) g/dl Hct (37-47) % MCV (80-98) fL MCH (27.0-33.0) pg MCHC (31.0-35.0) g/dl RDW (11.0-16.0) % Plt Count (160-400) X10*3/uL MPV (9.4-12.3) fL Immature Gran % (Auto) (0.0-0.4) % Neut % (Auto) (45-73) % Lymph % (Auto) (20-40) % [place] % (Auto) (2-11) % Eos % (Auto) (0-4) % Baso % (Auto) (0-2) % Lymph # (Auto) (1.2-4.9) X10*3/uL [place] # (Auto) (0.1-1.2) X10*3/uL Eos # (Auto) (0.0-0.4) X10*3/uL Baso # (Auto) (0.0-0.2) X10*3/uL Abs Immat Gran (auto) (0.00-0.03) X10*3/uL Absolute Neuts (auto) (2.0-8.3) X10*3/uL Absolute Nucleated RBC (0.0-0.012) X10*3/uL Nucleated RBC % (auto) (0.0-0.2) /100WBC PT (10.8-13.0) SEC INR (0.9-1.1) Sodium (135-145) mmol/L Potassium (3.3-5.1) mmol/L Chloride (96-108) mmol/L Carbon Dioxide (22-29) mmol/L Anion Gap (12-20) BUN (9-16) mg/dL Creatinine (0.5-1.4) mg/dL Estim Creat Clear Calc Estimated GFR Random Glucose (60-115) mg/dL Calcium (8.4-10.2) mg/dL Total Bilirubin (0.0-1.0) mg/dL AST (5-31) U/L ALT (0-31) U/L Alkaline Phosphatase (39-117) U/L Total Protein (6.5-8.0) g/dL Albumin (3.5-5.0) g/dL Beta HCG, Quant mIU/mL Urine Color Urine Appearance Urine pH (5.0-8.0) Ur Specific [place] (1.005-1.025) Urine Protein (NEG-TRACE) MG/DL Urine Glucose (UA) (NEG) MG/DL Urine Ketones (NEG) MG/DL Urine Blood (NEG) Urine Nitrite (NEG) Ur Leukocyte Esterase (NEG) Urine RBC (0) /HPF Urine WBC (0-4) /HPF Ur Squamous Epith Cells /LPF Urine Bacteria /LPF Urine Test NEGATIVE (NEGATIVE) Blood Type Antibody Screen Discharge Plan Discharge Clinical Impression: Dysfunctional uterine bleeding, Anemia Patient Disposition: Home, Self-Care Instructions: Dysfunctional Uterine Bleeding (ED), Anemia (ED) Prescriptions: New ferrous sulfate 325 mg (65 mg iron) tablet 325 mg PO TID Qty: 90 RF: 1 ondansetron HCl [Zofran] 4 mg tablet 4 mg PO Q8H PRN (Reason: nausea and vomiting) Qty: 14 RF: 0 Referrals: Heather Mccarthy MD [Physician] - 2 days Stand Alone Forms: Work/School Release Print Language: Algerian
== END 2020-09-27 14:47 | disposition home or self-care (01) ==
PROVIDERS: Physician Assistant Medical; Emergency Provider Emergency Medicine; PCP Family Medicine
DX: N93.8 Other specified abnormal uterine and vaginal bleeding (principal); D64.9 Anemia, unspecified; F64.0 Transsexualism; F17.210 Nicotine dependence, cigarettes, uncomplicated; F12.90 Cannabis use, unspecified, uncomplicated; Z79.890 Hormone replacement therapy
CPT/HCPCS: 36415; 80053; 81001; 81003; 81025; 84702; 85025; 85610; 86850; 86900; 86901; 96360; 99283; 99284

== ENCOUNTER 2020-10-04 10:25 | Outpatient (REF) | payer MEDICAID, SELFPAY ==
[2020-10-04 12:10] LABS: Estimated Average Glucose 80 mg/dL; Hemoglobin A1c % 4.4 %
[2020-10-04 12:46] LABS: TSH reflex Free T4 0.79 uIU/mL (0.32-4.0)
[2020-10-04 18:20] LABS: CT PCR NOT DETECTED (Not Detect.); NG PCR NOT DETECTED (Not Detect.)
[2020-10-05 20:57] LABS: Prolactin 7.5 ng/mL
== END 2020-10-04 10:26 | disposition home or self-care (01) ==
LOC: HO.LAB 10:25
PROVIDERS: PCP Family Medicine; Visit Provider Obstetrics & Gynecology
DX: Z01.411 Encounter for gynecological examination (general) (routine) with abnormal findings (principal); Z11.3 Encounter for screening for infections with a predominantly sexual mode of transmission; N93.9 Abnormal uterine and vaginal bleeding, unspecified
CPT/HCPCS: 36415; 83036; 83498; 84146; 84443; 87491; 87591; 99202

== ENCOUNTER → 2020-10-11 15:10 | Outpatient (BNVA) | payer MEDICAID, SELFPAY | PROVIDERS: PCP Family Medicine; Visit Provider Obstetrics & Gynecology | DX: N93.9 Abnormal uterine and vaginal bleeding, unspecified (principal) | CPT/HCPCS: 99212 ==

== ENCOUNTER 2021-05-19 12:28 | Emergency (ER) | payer MEDICAID, SELFPAY ==
[2021-05-19 13:57] VITALS: BP 153/91; PULSE 72; RESP 18; TEMP 36.7; O2SAT 100; BMI 35.5
[2021-05-19] MEDS: oxyCODONE HCl Immed Release 5 MG TABLET PO (14:06)
[2021-05-19] MEDS: Famotidine 20 MG TABLET PO (14:06)
[2021-05-19] MEDS: Magnesium Hydrox/Alum Hydrox 30 ML ORAL.SUSP PO (14:06)
[2021-05-19] MEDS: Lidocaine HCl Viscous 2 % 15 ML SOLUTION MUCOUS MEM (14:06)
--- NOTE | 2021-05-19 14:26 | ED_ITS ---
HPI - Dental/Oral General Chief complaint: Dental/Oral Stated complaint: Dental pain Time Seen by Provider: 05/19/21 13:59 Source: patient Mode of arrival: ambulatory Limitations: no limitations History of Present Illness HPI Narrative: 25-year-old female presents to the ED for right lower molar pain for week. Pat samuel states she has a crack to with hole in molar that is now more painful and has some yellow collection in hole. Patient denies any recent trauma to face. Patient denies any swelling of tongue, neck, chest pain, or shortness of breath. Patient has appointment with dentist this upcoming Wednesday. Teeth map: 1. cracked tooth with hole Related Data Previous Rx's Medication Instructions Recorded ferrous sulfate 325 mg (65 mg 325 mg PO TID #90 tab 09/27/20 iron) tablet ondansetron HCl 4 mg tablet 4 mg PO Q8H PRN #14 tab 09/27/20 (Zofran) ibuprofen 800 mg tablet 800 mg PO Q8H #90 tab 10/04/20 tranexamic acid 650 mg tablet 1,300 mg PO TID #30 tab 10/04/20 amoxicillin 875 mg-potassium 1 tab PO Q12H 10 Days #20 tab 05/19/21 clavulanate 125 mg tablet (Augmentin) naproxen 500 mg tablet 500 mg PO BID PRN 10 Days #20 tab 05/19/21 Allergies Allergy/AdvReac Type Severity Reaction Status Date / Time No Known Allergies Allergy Verified 10/04/20 10:34 Review of Systems Verdana 4l Review of Systems: Verdana 4d dental pain Verdana 4d Verdana 4d Yes all other systems are reviewed and are negative [facility] Past Medical History Medical History (Updated 05/19/21 @ 14:35 by HUSSEIN Esparza) Anemia Surgical History H/O hand surgery H/O hernia repair History of tonsillectomy Hx of breast reconstruction Family History Family History Maternal Uncle Lung cancer Maternal Aunt Bone cancer Stroke Maternal Grandfather Diabetes Mother Uterine fibroid Maternal Grandmother Uterine fibroid Social History Social History Alcohol intake: current Alcohol intake frequency: holidays/special occasions only Patient Tobacco Use Status: Current someday Tobacco user Substance Use Type: Marijuana Advance Directives: No Advance Directives Information Provided: Yes Patient : No Physical Exam Verdana 4l Vital Signs: Verdana 4d Verdana 4d Vital Signs: Verdana 4d Verdana 4Bd Last Vital Signs Verdana 4d Director Of Online Education New 4d Director Of Online Education New 4d Temp 98.0 F 05/19/21 13:57 Director Of Online Education New 4d Pulse 72 05/19/21 13:57 Director Of Online Education New 4d Resp 18 05/19/21 13:57 BP 153/91 H 05/19/21 13:57 Pulse Ox 100 05/19/21 13:57 BMI result Body Mass Index 35.5 Const: Other: Negative for facial swelling. Negative for neck swelling. Oral exam negative for any swelling of tongue, tongue floor, or palet. Patient speaking in full sentences. Negative for any drooling or change in voice. General: cooperative, healthy appearing, comfortable, no acute distress, well developed and alert Orientation/consciousness: oriented to time and patient oriented x3 HENMT: Head: Yes normal to inspection, Yes No palpable skull fracture present, Yes normocephalic, Yes atraumatic and No abrasion Teeth image: 1. Cracked hole in decayed tooth with mild yellow collection. Negative for any surrounding gum swelling or erythema. Eyes: General: appearance normal, both eyes and all related structures Neck: Neck: Yes normal visual inspection, Yes full ROM, Yes no lymphadenopathy, Yes no meningeal signs, Yes trachea midline and Yes supple Chest: Chest palpation & inspection: normal inspection of the chest and normal p alpation of entire chest wall Resp: Effort & Inspection: normal respiratory effort and able to speak in complete sentences Auscultation: clear to auscultation bilaterally Cardio: Jugular venous distension: no JVD Heart sounds: S1 normal heart sound present and S2 normal heart sound present GI: Inspection: Yes normal to inspection and No abdominal wall ecchymosis Palp ation (GI): Soft to palpation, not firm, nontender, no guarding and not rigid : General: No CVA tenderness and Yes no CVA tenderness Back/Spine/Pelvis: Back: no CVA tenderness, No CVA tenderness and No back tenderness Skin: General skin exam: no rashes or lesions noted and elasticity normal Neuro: General: oriented to time, patient oriented x3, gait normal, tone normal, moves all extremities, Normal light touch and pain sensation, no meningeal signs, no focal motor deficits and CN's II-XI intact bilaterally Extrem: General: Yes normal to inspection and Yes full ROM Psych: Appearance: grossly normal, well kempt and not disheveled Course Course Course Narrative: Pain medication ordered. Reevaluation(s) Reevaluation #1: Oxycodone, oral lidocaine given for pain relief. No indication for any CT imaging. Not suspecting any retropharyngeal abscess, gum abscess, or Phuc angina. Patient requesting something for mild burning in abdomen patient states history of GERD and when she takes pain medication it usually leads to acid sensation. Time: 14:35 MDM - Dental/Oral MDM Narrative Medical decision making narrative: Dental pain Discharge Plan Discharge Clinical Impression: Toothache Patient Disposition: Home, Self-Care Instructions: Toothache (ED) Additional Instructions: You need follow-up with your dentist since Wednesday for further evaluation and possible tooth extraction. you will be discharged with pain medication and antibiotics. Return to the ED immediately for any facial swelling, tongue swelling, drooling, change in voice, neck swelling, severe pain, chest pain, shortness of breath, or any other concerning symptoms. Prescriptions: New naproxen 500 mg tablet 500 mg PO BID PRN (Reason: pain) 10 Days Qty: 20 0RF amoxicillin-pot clavulanate [Augmentin] 875-125 mg tablet 1 tab PO Q12H 10 Days Qty: 20 0RF No Action ferrous sulfate 325 mg (65 mg iron) tablet 325 mg PO TID Qty: 90 1RF ondansetron HCl [Zofran] 4 mg tablet 4 mg PO Q8H PRN (Reason: nausea and vomiting) Qty: 14 0RF ibuprofen 800 mg tablet 800 mg PO Q8H Qty: 90 3RF tranexamic acid 650 mg tablet 1,300 mg PO TID Qty: 30 3RF Stand Alone Forms: Work/School Release Interventions: ED Discharge Assessment Last Done: 05/19/21 14:47 Discharge Date/Time: 05/19/21 14:48 Print Language: Guyanese
== END 2021-05-19 14:48 | disposition home or self-care (01) ==
PROVIDERS: Emergency Provider Emergency Medicine Emergency Medical Services; PCP Family Medicine
DX: K08.89 Other specified disorders of teeth and supporting structures (principal); F12.90 Cannabis use, unspecified, uncomplicated; F17.200 Nicotine dependence, unspecified, uncomplicated
CPT/HCPCS: 99283

== ENCOUNTER 2021-09-10 19:29 | Emergency (ER) | payer MEDICAID, SELFPAY ==
--- NOTE | ~2021-09-10 | XR_ITS ---
EXAMINATION: XR CHEST CLINICAL INFORMATION: Cough COMPARISON: None TECHNIQUE: 2 views of the chest were obtained. FINDINGS: No significant abnormality is noted involving the heart, lungs, mediastinum, bony thorax or soft tissues. XR/XR chest 2V IMPRESSION: Unremarkable examination.
[2021-09-10 19:55] VITALS: BP 128/80; PULSE 78; O2SAT 98
[2021-09-10 20:50] VITALS: BP 113/73; PULSE 76; RESP 18; TEMP 36.6; O2SAT 100; BMI 31.6
--- NOTE | 2021-09-10 23:22 | ED.URI ---
HPI - URI/Sore Throat General Chief Complaint: Upper Respiratory Symptoms Stated Complaint: Covid + Time Seen by Provider: 09/10/21 23:22 Source: patient Mode of arrival: ambulatory Limitations: no limitations History of Present Illness HPI Narrative: patient swabbed positive for COVID 5 days ago. Patient started feeling sick 5 days ago. Shortness of breath, weakness, lightheaded. Patient is vaccinated and boostered. MD elicited complaint: cough, nasal congestion and other (headache) Onset (ago): day(s) Consistency: constant Severity: mild Context: sick contacts Associated symptoms: headache, rhinorrhea, nasal congestion and cough Related Data Previous Rx's Medication Instructions Recorded ferrous sulfate 325 mg (65 mg 325 mg PO TID #90 tab 09/27/20 iron) tablet ondansetron HCl 4 mg tablet 4 mg PO Q8H PRN #14 tab 09/27/20 (Zofran) ibuprofen 800 mg tablet 800 mg PO Q8H #90 tab 10/04/20 tranexamic acid 650 mg tablet 1,300 mg PO TID #30 tab 10/04/20 amoxicillin 875 mg-potassium 1 tab PO Q12H 10 Days #20 tab 05/19/21 clavulanate 125 mg tablet (Augmentin) naproxen 500 mg tablet 500 mg PO BID PRN 10 Days #20 tab 05/19/21 fluticasone propionate 50 1 spray INTRANASAL BID #16 g 09/10/21 mcg/actuation nasal spray,suspension (Flonase Allergy Relief) rldfnqetakruo-KN-kuqrnutgrlp 5 10 ml PO Q4H #118 ml 09/10/21 mg-10 mg-100 mg/5 mL oral liquid Allergies Allergy/AdvReac Type Severity Reaction Status Date / Time No Known Allergies Allergy Verified 09/10/21 20:50 Review of Systems Constitutional: Constitutional: Reports no additional constitutional complaints Eyes: Eyes: Reports no additional eye complaints ENT: Denies dizziness Cardiovascular: Cardiovascular: Reports no additional cardiovascular complaints Respiratory: Respiratory: Reports as per HPI Gastrointestinal: Gastrointestinal: Reports no additional gastrointestinal complaints Genitourinary: Genitourinary: Reports no additional female genitourinary complaints Musculoskeletal: Musculoskeletal: Reports no additional musculoskeletal complaints Integumentary/Breasts: Skin/Breast: Denies rash Neurologic: Reports system reviewed and no additional complaints, except as documented, Denies dizziness and Denies Sensory deficit (Neuro) Psychiatric: Psychiatric: Denies anxiety [facility] Past Medical History Medical History Anemia Surgical History H/O hand surgery H/O hernia repair History of tonsillectomy Hx of breast reconstruction Family History Family History Maternal Uncle Lung cancer Maternal Aunt Bone cancer Stroke Maternal Grandfather Diabetes Mother Uterine fibroid Maternal Grandmother Uterine fibroid Social History Social History Alcohol intake: current Alcohol intake frequency: holidays/special occasions only Patient Tobacco Use Status: Current someday Tobacco user Substance Use Type: Marijuana Advance Directives: No Advance Directives Information Provided: No Physical Exam Vital Signs: Vital Signs: Last Vital Signs Temp 97.8 F 09/10/21 20:50 Pulse 76 09/10/21 20:50 Resp 18 09/10/21 20:50 BP 113/73 09/10/21 20:50 Pulse Ox 100 09/10/21 20:50 BMI result Body Mass Index 31.6 Const: General: healthy appearing Nutritional Appearance: average body habitus Orientation/consciousness: oriented to person and patient oriented x3 Limitations: no limitations HEENT: Head: Yes normal to inspection Ears: external ears normal General nose exam: Normal external nose present Mouth: Normal oral and palatal mucosa present and oropharynx normal Throat: Yes posterior oropharynx normal Eyes: General: appearance normal, both eyes and all related structures Neck: Other: supple Neck: Yes normal visual inspection Chest: Chest palpation & inspection: normal inspection of the chest Resp: Auscultation: clear to auscultation bilaterally Cardio: Jugular venous distension: no JVD Rate: regular rate Rhythm: regular rhythm Heart sounds: S1 normal heart sound present and S2 normal heart sound present GI: Inspection: Yes normal to inspection Palpation (GI): Soft to palpation, nontender and No hepatosplenomegaly present Auscultation: normal bowel sounds : General: Yes no CVA tenderness Back/Spine/Pelvis: Back: no CVA tenderness Skin: General skin exam: no rashes or lesions noted Neuro: General: oriented to person and patient oriented x3 Cranial nerves: Yes CN's II-XII intact bilaterally Motor exam (neuro): 5/5 motor strength present throughout Sensory Exam: No Sensory deficit (Neuro) Extrem: General: Yes normal to inspection Psych: Appearance: grossly normal Course Reevaluation(s) Reevaluation #1: patient with nasal congestion and cough will dc on Robitussin and flonase Time: 23:33 MDM - URI/Sore Throat Imaging Data Chest x-ray: Radiologist's impression: FINDINGS: No significant abnormality is noted involving the heart, lungs, mediastinum, bony thorax or soft tissues. XR/XR chest 2V IMPRESSION: Unremarkable examination. Discharge Plan Discharge Clinical Impression: Upper respiratory infection, COVID-19 Patient Disposition: Home, Self-Care Instructions: COVID-19 (Coronavirus Disease 2019) (ED) Prescriptions: New fluticasone propionate [Flonase Allergy Relief] 50 mcg/actuation spray,suspension 1 spray intranasal BID Qty: 16 0RF Rx Instructions: administer into each nostril [id number]-NR-lyqrllnduwc 5-10-100 mg/5 mL liquid 10 ml PO Q4H Qty: 118 0RF No Action ferrous sulfate 325 mg (65 mg iron) tablet 325 mg PO TID Qty: 90 1RF ondansetron HCl [Zofran] 4 mg tablet 4 mg PO Q8H PRN (Reason: nausea and vomiting) Qty: 14 0RF naproxen 500 mg tablet 500 mg PO BID PRN (Reason: pain) 10 Days Qty: 20 0RF amoxicillin-pot clavulanate [Augmentin] 875-125 mg tablet 1 tab PO Q12H 10 Days Qty: 20 0RF ibuprofen 800 mg tablet 800 mg PO Q8H Qty: 90 3RF tranexamic acid 650 mg tablet 1,300 mg PO TID Qty: 30 3RF Referrals: [facility] [Primary Care Provider] - 1 week
== END 2021-09-10 23:47 | disposition home or self-care (01) ==
PROVIDERS: Emergency Provider Emergency Medicine; PCP Family Medicine
DX: U07.1 COVID-19 (principal); R51.9 Headache, unspecified; R05.9 Cough, unspecified; F17.200 Nicotine dependence, unspecified, uncomplicated; Z71.6 Tobacco abuse counseling; Z79.899 Other long term (current) drug therapy
CPT/HCPCS: 71046; 99283

== ENCOUNTER 2022-12-14 18:04 | Emergency (ER) | payer MEDICAID, SELFPAY ==
--- NOTE | ~2022-12-14 | XR_ITS ---
EXAMINATION: XR SHOULDER, RIGHT CLINICAL INFORMATION: Shoulder pain COMPARISON: None available. TECHNIQUE: AP external rotation, Grashey, scapular Y, and axillary views of the right shoulder. FINDINGS: The bones and soft tissues are normal. No fracture. Glenohumeral and acromioclavicular alignment is anatomic with normal joint space. No abnormal soft tissue calcifications. XR/XR shoulder RT min 2V IMPRESSION: Normal right shoulder.
[2022-12-14 18:35] VITALS: BP 135/68; PULSE 72; RESP 16; TEMP 36.8; O2SAT 100; BMI 32.5
--- NOTE | 2022-12-14 18:36 | ED.GENADULT ---
HPI - General Adult General Chief complaint: Fall Stated complaint: back/ right shoulder injury, fall Time Seen by Provider: 12/14/22 18:53 Source: patient, RN notes reviewed and old records reviewed Mode of arrival: ambulatory Limitations: no limitations History of Present Illness HPI narrative: 27-year-old female who denies any past medical history presents for evaluation of right upper back pain. Patient reports that 5 days ago she fell while running down a hill because it was wet He reports that she landed on her right side/right shoulder. She reports that the pain did not bother her too much initially but worsened couple of days She denies hitting her head or losing consciousness The pain is worse with positional changes and movement No other complaints or concerns at this time Denies any numbness, tingling, the pain does not radiate Related Data Previous Rx's Medication Instructions Recorded ferrous sulfate 325 mg (65 mg 325 mg PO TID Anemia #90 tabs 09/27/20 iron) tablet ondansetron HCl 4 mg tablet 4 mg PO Q8H PRN nausea and 09/27/20 (Zofran) vomiting #14 tabs ibuprofen 800 mg tablet 800 mg PO Q8H #90 tabs 10/04/20 tranexamic acid 650 mg tablet 1,300 mg PO TID #30 tabs 10/04/20 amoxicillin 875 mg-potassium 1 tab PO Q12H 10 days #20 tabs 05/19/21 clavulanate 125 mg tablet (Augmentin) naproxen 500 mg tablet 500 mg PO BID PRN pain 10 days #20 05/19/21 tabs fluticasone propionate 50 1 spray intranasal BID #16 grams 09/10/21 mcg/actuation nasal spray,suspension (Flonase Allergy Relief) urhmjjudcxltz-QU-nbwnviguxzx 5 10 ml PO Q4H #118 mL 09/10/21 mg-10 mg-100 mg/5 mL oral liquid methocarbamol 500 mg tablet 500 mg PO TID PRN muscle spasm #20 12/14/22 tabs naproxen 500 mg tablet 500 mg PO BID PRN pain #20 tabs 12/14/22 Allergies Allergy/AdvReac Type Severity Reaction Status Date / Time No Known Allergies Allergy Verified 09/10/21 20:50 Review of Systems Constitutional: Constitutional: Denies headache(s) ENT: Denies headache(s) Cardiovascular: Cardiovascular: Denies chest pain and Denies dyspnea Respiratory: Respiratory: Denies cough and Denies dyspnea Musculoskeletal: Musculoskeletal: Reports back pain, Reports arthralgias and Reports stiffness Neurologic: Denies headache(s) [facility] Past Medical History Medical History Anemia Surgical History H/O hand surgery H/O hernia repair History of tonsillectomy Hx of breast reconstruction Family History Family History Maternal Uncle Lung cancer Maternal Aunt Bone cancer Stroke Maternal Grandfather Diabetes Mother Uterine fibroid Maternal Grandmother Uterine fibroid Social History Social History Alcohol intake: current Alcohol intake frequency: holidays/special occasions only Patient Tobacco Use Status: Current someday Tobacco user Substance Use Type: Marijuana Advance Directives: No Advance Directives Information Provided: No Physical Exam ED Vital Signs: Vital Signs - 24 hr 12/14/22 18:35 12/14/22 19:12 Temperature 98.3 F 98.5 F Pulse Rate 72 74 Respiratory Rate 16 16 Blood Pressure 135/68 123/66 Pulse Oximetry 100 98 Oxygen Delivery Method Room Air Room Air BMI result Body Mass Index 32.5 Const General: healthy appearing, comfortable, no acute distress, alert and awake Nutritional Appearance: well nourished Orientation/consciousness: patient oriented x3 HENMT Head: Yes normocephalic and Yes atraumatic Eyes Eyelids: Yes eyelids normal Conjunctivae: conjunctivae normal Sclerae: sclerae normal Corneas: corneas normal Pupils: Equal, round and reactive pupils present EOM: EOMs intact bilaterally Neck Neck: Yes full ROM Resp Effort & Inspection: normal respiratory effort, able to speak in complete sentences and not labored Back/Spine/Pelvis Other: Tenderness to the right thoracic paraspinous region and trapezius muscle group. No deformities noted. Cervical Spine: No cervical muscular tenderness and No Cervical spine tenderness Thoracic/Lumbar Spine: thoracic and lumbar spine normal to inspection Skin General skin exam: elasticity normal Neuro General: patient oriented x3 Cranial nerves: Yes Equal, round and reactive pupils present and Yes Bilaterally intact EOM present Cognition (Neuro): normal cognition Extrem Other: Moving all extremities well without any obvious deformities Course Course Course Narrative: This is an RME: Additional HPI, ROS, PE not included below will be deferred to primary provider. 27 year old female presenting for shoulder pain after a fall. Patient reports they fell Wednesday down a hill and hurt her right shoulder and the pain moves into their chest. Not on thinners. No head strike and no loss of consciousness. Patient reports tingling down the arm. Pulses 2+ and symmetric, sensory and motor function intact. Cap refill less than 2 seconds. Plan- imaging Medical Decision Making Medical Decision Making MDM Narrative: 27-year-old female presents for evaluation of right upper back pain. Denies any head trauma. X-ray of the right shoulder was ordered. She has no cervical or thoracic vertebral tenderness. No neuro deficits. Patient medicated with Toradol in the ER Differential Diagnosis Differential Diagnoses: The differential diagnosis associated with the presentation includes Muscle strain Contusion Shoulder fracture Shoulder separation Rotator cuff injury Independent Interpretation I performed an independent interpretation of an: Plain X-Ray (No obvious fracture of the right shoulder) Radiology Impression Discussion of test interpretation with radiology: I have reviewed the radiologist's reading. (Normal right shoulder) Prescription Management I considered prescription management with: Pain Medication (Toradol) Discharge Plan Discharge Clinical Impression: Muscle strain Patient Disposition: Home, Self-Care Instructions: Muscle Strain (ED) Additional Instructions: Use naproxen twice daily as needed for pain for Use methocarbamol as needed for muscle spasms. This may make you sleepy, do not drink alcohol or drive after taking it Your x-ray did not show any evidence of fracture Follow-up with your primary doctor Prescriptions: New naproxen 500 mg tablet 500 mg PO BID PRN (Reason: pain) Qty: 20 0RF methocarbamol 500 mg tablet 500 mg PO TID PRN (Reason: muscle spasm) Qty: 20 0RF No Action ferrous sulfate 325 mg (65 mg iron) tablet 325 mg PO TID Qty: 90 1RF ondansetron HCl [Zofran] 4 mg tablet 4 mg PO Q8H PRN (Reason: nausea and vomiting) Qty: 14 0RF fluticasone propionate [Flonase Allergy Relief] 50 mcg/actuation spray,suspension 1 spray intranasal BID Qty: 16 0RF Rx Instructions: administer into each nostril [id number]-IH-tqowzmezcme 5-10-100 mg/5 mL liquid 10 ml PO Q4H Qty: 118 0RF naproxen 500 mg tablet 500 mg PO BID PRN (Reason: pain) 10 Days Qty: 20 0RF amoxicillin-pot clavulanate [Augmentin] 875-125 mg tablet 1 tab PO Q12H 10 Days Qty: 20 0RF ibuprofen 800 mg tablet 800 mg PO Q8H Qty: 90 3RF tranexamic acid 650 mg tablet 1,300 mg PO TID Qty: 30 3RF
[2022-12-14 19:12] VITALS: BP 123/66; PULSE 74; RESP 16; TEMP 36.9; O2SAT 98
[2022-12-14] MEDS: Ketorolac Tromethamine 30 MG/ML VIAL IM (20:27)
== END 2022-12-14 20:32 | disposition home or self-care (01) ==
PROVIDERS: Emergency Provider Student in an Organized Health Care Education/Training Program; PCP Family Medicine
DX: S39.012A Strain of muscle, fascia and tendon of lower back, initial encounter (principal); S49.91XA Unspecified injury of right shoulder and upper arm, initial encounter; M54.6 Pain in thoracic spine; M25.511 Pain in right shoulder; F17.200 Nicotine dependence, unspecified, uncomplicated; W01.0XXA Fall on same level from slipping, tripping and stumbling without subsequent striking against object, initial encounter; Y93.9 Activity, unspecified; Y92.9 Unspecified place or not applicable; Y99.9 Unspecified external cause status; Z79.899 Other long term (current) drug therapy; Z71.6 Tobacco abuse counseling
CPT/HCPCS: 73030; 96372; 99283; 99284; J1885

== ENCOUNTER 2023-05-10 10:03 | Outpatient (REF) | payer MEDICAID, SELFPAY ==
[2023-05-10 11:11] LABS: MANUAL DIFF FLAG NO
[2023-05-10 11:42] LABS: Basophils Percent Auto 0.7 % (0-2); Eosinophils Absolute Auto 0.2 X10*3/uL (0.0-0.4); Hematocrit 35.5 % (37.0-47.0); Hemoglobin 10.3 g/dl (12.0-16.0); Imm Gran Abs Auto 0.02 X10*3/uL (0.00-0.03); Imm Gran Pct Auto 0.5 % (0.0-0.4); Lymphocytes Percent Auto 48.2 % (20-40); Mean Corpuscular Hemoglobin 19.1 pg (27.0-33.0); Mean Corpuscular Volume 65.7 fL (80.0-98.0); Mean Platelet Volume 8.9 fL (9.4-12.3); Monocytes Absolute Auto 0.3 X10*3/uL (0.1-1.2); Monocytes Percent Auto 5.9 % (2-11); Neutrophils Absolute Auto 1.7 x10*3/uL (2.0-8.3); Neutrophils Percent Auto 39.7 % (45-73); Platelet Count 673 X10*3/uL (160-400); Red Cell Distribution Width 19.9 % (11.0-16.0); White Blood Count 4.2 X10*3/uL (4.8-10.8)
[2023-05-10 13:53] LABS: Alanine Aminotransferase 12 U/L (0-31); Albumin Level 4.2 g/dL (3.5-5.0); Alkaline Phosphatase 56 U/L (39-117); Anion Gap 13 (12-20); Aspartate Amino Transferase 19 U/L (5-31); Bilirubin Direct < 0.2 mg/dL (0.0-0.5); Bilirubin Total 0.2 mg/dL (0.0-1.0); Blood Urea Nitrogen 16 mg/dL (9-16); Calcium 9.8 mg/dL (8.4-10.2); Carbon Dioxide 28 mmol/L (22-29); Chloride 104 mmol/L (96-108); Cholesterol 218 mg/dL (<200); Estimated Glomerular Filt Rate > 60; Glucose Random 93 mg/dL (60-115); HDL Cholesterol 46 mg/dL (>40); LDL Cholesterol Calculated 145 mg/dL (<100); Potassium 4.1 mmol/L (3.3-5.1); Sodium 141 mmol/L (135-145); Total Protein 8.6 g/dL (6.5-8.0); Triglycerides 136 mg/dL (<150)
[2023-05-10 14:08] LABS: Ferritin 3 ng/mL (10-122); TSH reflex Free T4 0.51 uIU/mL (0.32-4.0)
[2023-05-10 14:13] LABS: Vitamin B12 586 pg/mL (200-900)
[2023-05-11 12:49] LABS: HIV AB/AG Nonreactive (Nonreactive); ~HepC Num1 0.26 S/CO (0.00-0.79); ~Hepatitis C Antibody Nonreactive (Nonreactive)
== END 2023-05-10 10:04 | disposition home or self-care (01) ==
LOC: HO.HHCL 10:03
PROVIDERS: Visit Provider Family Medicine
DX: Z11.59 Encounter for screening for other viral diseases (principal); Z11.3 Encounter for screening for infections with a predominantly sexual mode of transmission; Z11.4 Encounter for screening for human immunodeficiency virus [HIV]; D50.0 Iron deficiency anemia secondary to blood loss (chronic); F64.0 Transsexualism
CPT/HCPCS: 36415; 80048; 80061; 80076; 82607; 82728; 84443; 85025; 86803; 87389

== ENCOUNTER → 2023-12-23 14:12 | Outpatient (RCR) | payer MEDICAID, SELFPAY ==
[2020-06-24 11:14] VITALS: BP 121/64; PULSE 68; RESP 12; TEMP 36.4; O2SAT 100; BMI 33.4
--- NOTE | 2020-06-24 11:39 | P.CNHO_ITS ---
Subjective - Subjective Chief complaint: Anemia Consult date: 06/24/20 Primary Care Provider: Mignon Tolentino MD Medical Summary: Diagnosis: Severe iron deficiency anemia 2020 Hemoglobin 6.2 gram/dL in April 2020. Status post blood transfusion. Menorrhagia causing blood loss etiology of anemia. Poor tolerance to oral iron therapy. HPI - Consult Narrative Reason for consult: Iron deficiency anemia Narrative: Digna Vera is a 24 year old transgender female to male who is here for evaluation of anemia. He was diagnosed with severe iron deficiency in April of 2020 when he presented with weakness and dizziness. His hemoglobin was a round 6.2 gram/dL, received 2 units blood transfusion. Hemoglobin improved to 9.3 but in May it was again down to about 8.3 gram/dL. He was started on oral iron, recommended twice a day but he is not able to tolerate more than once a day. Reports nausea and constipation. At this time he denies any chest pain, shortness of breath, palpitation or dizziness. He reports family history of iro n deficiency anemia in his sister. No gastrointestinal cancers in his family. Other than recent constipation from iron, no prior gastrointestinal issues such as change in bowel habits, constipation, hematochezia or melena. Review of Systems - Constitutional Reports as per HPI, Denies body aches, Denies chills, Denies malaise, Denies night sweats, Denies weight loss - Cardiovascular Reports no additional cardiovascular complaints - Respiratory Reports no additional respiratory complaints - Gastrointestinal Reports no additional gastrointestinal complaints - Genitourinary Reports heavy periods Oncology Screenings - ECOG Performance Status ECOG Performance Status: 0 [facility] Medical History: Medical History (Last Reviewed 06/01/20 @ 17:17 by Elizabeth Alas MD) Anemia Family History: Family History (Last Updated 06/24/20 @ 11:19 by Amber Dent) Maternal Uncle Lung cancer Maternal Aunt Bone cancer Stroke Maternal Grandfather Diabetes Mother Uterine fibroid Maternal Grandmother Uterine fibroid Surgical History: Surgical History (Last Updated 06/24/20 @ 11:20 by Amber Dent) H/O hernia repair History of tonsillectomy Hx of breast reconstruction Social History: Social History (Last Updated 06/24/20 @ 11:21 by Amber Dent) Alcohol History: Alcohol intake: current Alcohol History Details: Alcohol intake frequency: holiday/special occasion Tobacco History: Smoking Status: Former smoker Tobacco Type: Cigarette Smoking Quit Date: 04/2017 Substance Use History: Use of substances other than those prescribed or required for medical reasons : Yes Substance Use Type: Marijuana Smoking status: Former smoker Home Medications and Allergies Home Medications Medication Instructions Recorded Confirmed Type citalopram 1 tab PO BEDTIME 06/24/20 06/24/20 History Allergies Allergy/AdvReac Type Severity Reaction Status Date / Time No Known Allergies Allergy Verified 06/01/20 16:22 Physical Exam Vital signs: Vital Signs Temp 97.5 F 06/24/20 11:14 Pulse 68 06/24/20 11:14 Resp 12 06/24/20 11:14 BP 121/64 06/24/20 11:14 Pulse Ox 100 06/24/20 11:14 Intake & Output 06/23/20 06/24/20 06/24/20 18:59 06:59 18:59 Other: Weight 80.2 kg [place] Weight in Grams 31050 Weight 80.2 kg - Constitutional Present: no acute distress, average body habitus - Routine HEENT Exam Head: Present: normal inspection Eye: Present: EOMI, conjunctivae pink, PERRL - Routine Neck Exam Absent: lymphadenopathy - Routine Respiratory Exam Absent: accessory muscle use - Routine Cardiovascular Exam Cardiovascular: Present: S1, S2 - Routine Extremities Exam Present: normal inspection Hem/Onc Consult Result - Labs CBC & Chem 7: 06/24/20 11:45 Assessment and Plan (1) Anemia Status: Chronic Qualifiers: Anemia type: iron deficiency Iron deficiency anemia type: chronic blood loss Qualified Code(s): D50.0 - Iron deficiency anemia secondary to blood loss (chronic) 1. This is a 24-year-old transgender male presenting with iron deficiency anemia secondary to menorrhagia. Patient has been started on oral iron supplementation but is not able to tolerate this twice a day because of GI side effects. The vaginal bleeding has however stopped and patient is currently asymptomatic. However hemoglobin is still rather low and he is not tolerating oral iron supplementation. I discussed parenteral iron therapy with iron dextran, p ossible side effects such as allergic/infusion reactions were discussed. Patient is willing to go ahead with infusion. This is being scheduled in the following days. Follow-up in 3 months.
--- NOTE | 2020-06-24 11:58 | MHC.HEMONCMA ---
Patient came in today for a consult on severe anemia, states that he is doing better, that he is not having his heavy menses anymore. He states that he is also still taking the iron pills. Clinical summary was reviewed and updated. He had lab work and will return in 3 months for a follow up.
[2020-06-24 12:24] LABS: Basophils Percent Auto 0.6 % (0-2); Imm Gran Abs Auto 0.02 X10*3/uL (0.00-0.03); Imm Gran Pct Auto 0.3 % (0.0-0.4); MANUAL DIFF FLAG SCAN; Retic HGB Equivalent 17.6 pg (30.0-35.0); SCAN SMEAR FLAG 1
[2020-06-24 12:27] LABS: Eosinophils Absolute Auto 0.3 X10*3/uL (0.0-0.4); Eosinophils Percent Auto 4.9 % (0-4); Hemoglobin 8.5 g/dl (12.0-16.0); Immature Retic Fraction 7.8 % (3.0-15.9); Lymphocytes Absolute Auto 1.8 X10*3/uL (1.2-4.9); Lymphocytes Percent Auto 25.9 % (20-40); Mean Corpuscular HGB Conc 29.3 g/dl (31.0-35.0); Mean Corpuscular Volume 75.1 fL (80-98); Mean Platelet Volume 8.8 fL (9.4-12.3); Monocytes Absolute Auto 0.5 X10*3/uL (0.1-1.2); Monocytes Percent Auto 7.4 % (2-11); Neutrophils Absolute Auto 4.2 X10*3/uL (2.0-8.3); Neutrophils Percent Auto 60.9 % (45-73); Platelet Count 513 X10*3/uL (160-400); Red Blood Count 3.86 X10*6/uL (4.20-5.50); Red Cell Distribution Width 19.1 % (11.0-16.0); Reticulocytes Absolute 0.039 X10*6/uL (0.026-0.095); White Blood Count 6.9 X10*3/uL (4.8-10.8)
[2020-06-24 12:52] LABS: Iron 18 mcg/dL (30-160); Percent Iron Saturation 5 % (15-50); Total Iron Binding Capacity 385 mcg/dL (228-428); Unsaturated Iron Binding 367 ug/dL
[2020-06-24 13:44] LABS: SLIDE REVIEW VERIFIED
--- NOTE | 2020-06-28 15:11 | MHC.HEMONCMA ---
Patient scheduled for iron infusion for 07/17/2020 at 0800. Patient is aware. Nichol is aware patient chose this date.
--- NOTE | 2020-09-24 10:52 | PM.HEMONCPN ---
Medical Summary - Medical Summary Date of Service: 09/24/20 Chief complaint: Excessive menstrual bleeding Medical Summary: Diagnosis: Severe iron deficiency anemia 2020 Hemoglobin 6.2 gram/dL in April 2020. Status post blood transfusion. Menorrhagia causing blood loss etiology of anemia. Poor tolerance to oral iron therapy. Received iron dextran in June 2020 Interval History Interval history: Patient is here in follow-up. She has received IV iron a few months ago and tolerated it well. Unfortunately she continues to have extremely heavy menstrual bleeding that is now lasting almost 2 weeks. She has not been able to get her testosterone injection. She plans to have her ovaries removed. Review of Systems - Constitutional Reports as per HPI, Reports no additional constitutional complaints - Cardiovascular Denies chest pain, Denies chest pain at rest, Denies chest pain with activity - Respiratory Denies cough, Reports dyspnea on exertion - Gastrointestinal Denies abdominal pain PMFSH Medical History: Medical History (Last Reviewed 06/01/20 @ 17:17 by Elizabeth Alas MD) Anemia Family History: Family History (Last Updated 06/24/20 @ 11:19 by Amber Dent) Maternal Uncle Lung cancer Maternal Aunt Bone cancer Stroke Maternal Grandfather Diabetes Mother Uterine fibroid Maternal Grandmother Uterine fibroid Surgical History: Surgical History (Last Updated 06/24/20 @ 11:20 by Amber Dent) H/O hernia repair History of tonsillectomy Hx of breast reconstruction Social History: Social History (Last Updated 09/24/20 @ 11:13 by Amber Dent) Alcohol History: Alcohol intake: current Alcohol History Details: Alcohol intake frequency: holiday/special occasion Tobacco History: Patient Tobacco Use Status: Current someday Tobacco Cigarettes Per Day: 2 Substance Use History: Use of substances other than those prescribed or required for medical reasons: No Substance Use Type: Marijuana Home Medications and Allergies Allergies Allergy/AdvReac Type Severity Reaction Status Date / Time No Known Allergies Allergy Verified 06/01/20 16:22 Exam Vital signs: Vital Signs Temp 97.5 F 06/24/20 11:14 Pulse 68 06/24/20 11:14 Resp 12 06/24/20 11:14 BP 121/64 06/24/20 11:14 Pulse Ox 100 06/24/20 11:14 Weight 80.2 kg Body Mass Index 33.4 - Constitutional Present: no acute distress, average body habitus - Routine HEENT Exam Head: Present: normal inspection - Routine Respiratory Exam Absent: accessory muscle use - Routine Cardiovascular Exam Cardiovascular: Present: S1, S2 - Routine Extremities Exam Present: normal inspection Data - Labs CBC & Chem 7: 09/24/20 11:51 Labs: 06/24/20 11:45 Complete Blood Count Auto Diff Routine IRON PROFILE Routine Reticulocyte Count Routine SLIDE REVIEW Routine Laboratory Last Values WBC 6.9 X10*3/uL (4.8-10.8) 06/24/20 11:45 RBC 3.86 X10*6/uL (4.20-5.50) L 06/24/20 11:45 Hgb 8.5 g/dl (12.0-16.0) L 06/24/20 11:45 Hct 29.0 % (37-47) L 06/24/20 11:45 MCV 75.1 fL (80-98) L 06/24/20 11:45 MCH 22.0 pg (27.0-33.0) L 06/24/20 11:45 MCHC 29.3 g/dl (31.0-35.0) L 06/24/20 11:45 RDW 19.1 % (11.0-16.0) H 06/24/20 11:45 Plt Count 513 X10*3/uL (160-400) H D 06/24/20 11:45 MPV 8.8 fL (9.4-12.3) L 06/24/20 11:45 Immature Gran % (Auto) 0.3 % (0.0-0.4) 06/24/20 11:45 Neut % (Auto) 60.9 % (45-73) 06/24/20 11:45 Lymph % (Auto) 25.9 % (20-40) 06/24/20 11:45 [place] % (Auto) 7.4 % (2-11) 06/24/20 11:45 Eos % (Auto) 4.9 % (0-4) H 06/24/20 11:45 Baso % (Auto) 0.6 % (0-2) 06/24/20 11:45 Lymph # (Auto) 1.8 X10*3/uL (1.2-4.9) 06/24/20 11:45 [place] # (Auto) 0.5 X10*3/uL (0.1-1.2) 06/24/20 11:45 Eos # (Auto) 0.3 X10*3/uL (0.0-0.4) 06/24/20 11:45 Baso # (Auto) 0.0 X10*3/uL (0.0-0.2) 06/24/20 11:45 Abs Immat Gran (auto) 0.02 X10*3/uL (0.00-0.03) 06/24/20 11:45 Absolute Neuts (auto) 4.2 X10*3/uL (2.0-8.3) 06/24/20 11:45 Absolute Nucleated RBC 0.000 X10*3/uL (0.0-0.012) 06/24/20 11:45 Nucleated RBC % (auto) 0.0 /100WBC (0.0-0.2) 06/24/20 11:45 Smear Tech's Comments VERIFIED 06/24/20 11:45 Absolute Retic 0.039 X10*6/uL (0.026-0.095) 06/24/20 11:45 Percent Retic 1.0 % (0.5-1.8) 06/24/20 11:45 Immature Retic Fraction 7.8 % (3.0-15.9) 06/24/20 11:45 Retic Hgb Equivalent 17.6 pg (30.0-35.0) L 06/24/20 11:45 Iron 18 mcg/dL (30-160) L 06/24/20 11:45 TIBC 385 mcg/dL (228-428) 06/24/20 11:45 % Saturation 5 % (15-50) L 06/24/20 11:45 Unsat Iron Binding 367 ug/dL 06/24/20 11:45 Progress Note: A/P (1) Anemia Status: Chronic Assessment and plan: 1. This is a 25-year-old transgender male presenting with iron deficiency anemia secondary to menorrhagia. Patient is not able to tolerate this twice a day because of GI side effects. She tolerated IV dextran well a few months ago. She continues to have heavy menstrual blood losses and she is quite anemic again. She will be scheduled for iron dextran in the next few days. Follow-up in 2 months. - Time Spent With Patient Total time spent is greater than 50% in coordination of care (as documented) at patient's floor/unit and/or counseling patient: 15 - 24 minutes
[2020-09-24 11:10] VITALS: BP 113/56; PULSE 88; RESP 14; TEMP 36.6; O2SAT 99; BMI 33.4
[2020-09-24 12:15] LABS: Hematocrit 24.8 % (37-47); Hemoglobin 7.5 g/dl (12.0-16.0); Mean Corpuscular HGB Conc 30.2 g/dl (31.0-35.0); Mean Corpuscular Hemoglobin 23.5 pg (27.0-33.0); Mean Corpuscular Volume 77.7 fL (80-98); Platelet Count 434 X10*3/uL (160-400); Red Blood Count 3.19 X10*6/uL (4.20-5.50); Red Cell Distribution Width 23.9 % (11.0-16.0); White Blood Count 6.6 X10*3/uL (4.8-10.8)
[2020-09-24 16:50] LABS: Iron 50 mcg/dL (30-160); Percent Iron Saturation 18 % (15-50); Total Iron Binding Capacity 271 mcg/dL (228-428); Unsaturated Iron Binding 221 ug/dL
--- NOTE | 2020-09-25 07:54 | MHC.HEMONCMA ---
Called pharmacy to obtain dosing for iron dextran, filled out form and faxed to Nichol for date and time.
== END | disposition home or self-care (01) ==
LOC: HO.ONC 06-24 11:06
PROVIDERS: PCP Family Medicine; Referring Provider Family Medicine; Visit Provider Internal Medicine
DX: D50.0 Iron deficiency anemia secondary to blood loss (chronic) (principal); N92.0 Excessive and frequent menstruation with regular cycle; Z79.899 Other long term (current) drug therapy
CPT/HCPCS: 36415; 83540; 85025; 85027; 85045; 99202; 99213

== ENCOUNTER 2025-03-09 12:08 | Outpatient (REF) | payer MEDICAID, SELFPAY ==
--- OUTSIDE RECORDS SUMMARY | 2025-03-09 11:00 | XMS_ITS | Encounter Summary ---
Author Organization [employer] Address [address] [facility] 7 [place] [address] Care Team Providers Care Attendant Lodging Facilities Name Role Phone Mignon Tolentino MD Primary Care Provider +1- [phone] Reason for Referral * Consultation (Routine) - Authorized Specialty Diagnoses / Procedures Referred By Contac t Referred To Contact Behavioral Health Diagnoses Recurrent major depressive disorder, in partial remission (CMS/HCC) Procedures Referral to Behavioral Health Mignon Tolentino MD [address] [place] [phone] Phone: tel: fax: Referral ID Status Reason Start Date Expiration Date Visits Requested Visits Authorized [id number] Authorized Specialty Services Required 03/09/2026 1 1 Reason for Visit * Reason Comments Annual Exam Encounter Details Date Type Department Care Team (Late st Contact Info) Description 03/09/2025 11:00 AM EST Office Visit [facility] [address] [place] [phone] Mignon Tolentino MD [address] [place] [phone] Gender dysphoria in adult (Primary Dx); Recurrent major depressive disorder, in partial remission (CMS/HCC); Iron deficiency anemia due to chronic blood loss; Dyslipidemia; Marijuana dependence (HCC); Overweight; Dietary counseling; Exercise counseling; Encounter for immunization; Preventative health care; Anxiety; Posttraumatic stress disorder Social History Tobacco Use Types Packs/Day Years Used Date Smoking Tobacco: Some Days Cigarettes Smokeless Tobacco: Former Alcohol Use Standard Drinks/Week Comments Never 0 (1 standard drink = 0.6 oz pur e alcohol) Depression Answer Date Recorded Patient Health Questionnaire-9 Score 9 03/09/2025 Patient Health Questionnaire-9 Score 9 03/09/2025 Last PHQ-9: Questionnaire Data Not on file 1 05/09/2024 Housing Stability Answer Date Recorded What is your housing situation today? I have nessa morales 03/09/[address] you li ve. Do you have problems with any of the following? None of the above 03/09/2025 Food Insecurity Answer Date Recorded Within the past 12 months, y ou worried that your food would run out before you got money to buy more: Never True 03/09/2025 Within the past 12 months,th e food you bought just didn't last and you didn't have enough money to get more: Never True Transportation Answer Date Recorded In the past 12 months, has l ack of transportation kept you from medical appts, meetings, work or from getting things needed for daily living? No 03/09/2025 Utilities Answer Date Recorded In the past 12 months, has t he electric, gas, oil or water company threatened to shut off services in your home? No 03/09/2025 Depression Answer Date Recorded Patient Health Questionnaire-2 Score 2 03/09/2025 Internet Access Answer Date Recorded Internet Access Q1 No 03/09/2025 Internet Access Q2 I do not want or need it 02/18 Comments Unknown Sex and Gender Information Value Date Recorded Sex Assigned at Female 02/16/2022 10:30 AM EDT Legal Sex Male 10:30 AM EDT Gender Identity Transgender Male 02/16/2022 10:3 0 AM EDT Sexual Orientation Choose not to disclose 2021 10:30 AM EDT documented as of this encounter Last Filed Vital Signs Vital Sign Reading Time Taken Comments Blood Pressure 122/86 03/09/2025 11:27 AM EST Pulse 66 03/09/2025 11:27 AM EST Temperature 37.2 C (98.9 F) 03/09/2025 11:27 AM EST Respiratory Rate 20 03/09/2025 11:27 AM EST Oxygen Saturation 99% 03/09/2025 11:27 AM EST Inhaled Oxygen Concentration - - Weight 62.3 kg (137 lb 6.4 oz) 03/09/2025 11:27 AM EST Height 157.5 cm (5' 2 ) 03/09/2025 11:27 AM EST Body Mass Index 25.13 03/09/2025 11:27 AM EST documented in this encounter Functional Status * Over the past 2 weeks, how often have you been bothered by any of the following problems? Question Answer Date of Assessment Author Patient Health Questionnaire-2 Score 2 02/18 11:56 AM Gillian George MA * Little interest or pleasure in doing things Answer Date of Assessment Author Not at all 03/09/2025 11:56 AM Clinton George MA * Feeling down, depressed, or hopeless Answer Date of Assessment Author More than half the days 03/09/2025 11:56 AM Gillian George MA * Trouble falling or staying asleep, or sleeping too much Answer Date of Assessment Author More than half the days 03/09/2025 11:56 AM Gillian George MA * Feeling tired or having little energy Answer Date of Assessment Author Not at all 03/09/2025 11:56 AM Clinton George MA * Poor appetite or overeating Answer Date of Assessment Author More than half the days 03/09/2025 11:56 AM Gillian George MA * Feeling bad about yourself - or that you are a failure or have let yourself or your family down Answer Date of Assessment Author More than half the days 03/09/2025 11:56 AM Gillian George MA * Trouble concentrating on things, such as reading the newspaper or watching television Answer Date of Assessment Author Not at all 03/09/2025 11:56 AM Clinton George MA * Moving or speaking so slowly that other people could have noticed? Or the opposite - being so fidgety or restless that you have been moving around a lot more than usual. Answer Date of Assessment Author Several days 03/09/2025 11:56 AM Clinton George MA * Thoughts that you would be better off or hurting yourself in some way Answer Date of Assessment Author Not at all 03/09/2025 11:56 AM EST Clinton Odom MA * Patient Health Questionnaire-9 Score Answer Date of Assessment Author 9 03/09/2025 11:56 AM EST Clinton Odom MA * How difficult have these problems made it for you to do your work, take care of things at home, or get along with other people? Answer Date of Assessment Author Not difficult at all 03/09/2025 11:56 AM EST Per Gillian tamayo MA documented as of this encounter Miscellaneous Notes * Assessment & Plan Note - Mignon Tolentino MD - 03/09/2025 11:00 AM EST Associated Problem(s): Anemia Severe. Hgb 6.2 in 04/2020. Liley due to heavy menses. - s/p blood transfusion - he reports a FMHx of anemia. Referred to hematology in past but did not follow up. Lab Results Component Value Date FERRITIN 3 (L) 05/10/2023 HGB 10.3 (L) 05/10/2023 HGB 8.8 (L) 06/13/2020 HEMATOCRIT 28.3 (L) 06/13/2020 Overdue for follow up. Labs ordered. Orders: CBC auto differential; Future Ferritin; Future TSH with Reflex to Free T4; Future Iron And Total Iron Binding Capacity; Future Vitamin B12 (Cobalamin) and Folate Panel, Serum; Future ferrous sulfate (Fe Tabs) 325 (65 Fe) MG EC tablet; Take 1 tab po bid with food. Do not crush, chew, or split. * Assessment & Plan Note - Mignon Tolentino MD - 03/09/2025 11:00 AM EST Associated Problem(s): Gender dysphoria in adult Yosi meets DSM-5 criteria for gender dysphoria. He has expressed a persistent and well-documented experience of incongruence between their gender identity and assigned sex at . Yosi has has demonstrated capacity to make informed decisions regarding hormone therapy. He is aware of the potentialrisks, benefits, and irreversible effects of treatment. Yosi has no contraindications identified for initiating hormone therapy. -education reviewed: we reviewed our informed consent that includes expected physical changes, timeline, and irreversible effects; we reviewed fertility preservation options; patient declined/pursuedsperm/egg banking -discussed need for contraception if with a partner who is capable of getting -reinforced importance of medication adherence and follow-up -reviewed need for baseline labs and regular monitoring; expected time lines in terms of desired effects -He will peruse egg preservation prior to restarting hormone therapy -he inquired about bottom surgery we discussed extensive intervention, risks and outcomes. He is continuing to think about it. -s/p reconstruction surgery August [address] Lind -baseline labs ordered -He/him pronouns -Name legally changed to Yosi -continue lifestyle modification with exercise and diet for dyslipidemia Orders: Hepatic Function Panel; Future Hemoglobin A1c; Future Basic Metabolic Panel; Future * Assessment & Plan Note - Mignon Tolentino MD - 03/09/2025 11:00 AM EST Associated Problem(s): Preventative health care -next physical exam due after 03/09/26 -eye care facilitated by [facility] -dental home is none, encouraged 05/10/23 -health care proxy filed 03/09/25 * Assessment & Plan Note - Mignon Tolentino MD - 03/09/2025 11:00 AM EST Associated Problem(s): Iron deficiency anemia due to chronic blood loss (Resolved 03/09/2025) Severe. Hgb 6.2 in 04/2020. Liley due to heavy menses. - s/p blood transfusion - he reports a FMHx of anemia. Referred to hematology in past but did not follow up. Lab Results Component Value Date FERRITIN 3 (L) 05/10/2023 HGB 10.3 (L) 05/10/2023 HGB 8.8 (L) 06/13/2020 HEMATOCRIT 28.3 (L) 06/13/2020 Overdue for follow up. Labs ordered. Orders: CBC auto differential; Future Ferritin; Future TSH with Reflex to Free T4; Future Iron And Total Iron Binding Capacity; Future Vitamin B12 (Cobalamin) and Folate Panel, Serum; Future ferrous sulfate (Fe Tabs) 325 (65 Fe) MG EC tablet; Take 1 tab po bid with food. Do not crush, chew, or split. * Assessment & Plan Note - Mignon Tolentino MD - 03/09/2025 11:00 AM EST Associated Problem(s): Recurrent major depressive disorder, in partial remission (CMS/HCC) Pt was hospitalized in Mar 2020 for respite. Denies suicidial or homacidial ideation. Therapist andpsychiatrist offered. -referral to behavior health done 03/09/25 Orders: Referral to Behavioral Health; Future * Assessment & Plan Note - Mignon Tolentino MD - 03/09/2025 11:00 AM EST Associated Problem(s): Marijuana dependence (HCC) Likely exacerbated by uncontrolled depression and anxiety. Behavior health referral placed 03/09/25 * Assessment & Plan Note - Mignon Tolentino MD - 03/09/2025 11:00 AM EST Associated Problem(s): Anxiety * Assessment & Plan Note - Mignon Tolentino MD - 03/09/2025 11:00 AM EST Associated Problem(s): Posttraumatic stress disorder documented in this encounter Plan of Treatment Upcoming Encounters Date Type Department Care Team (Late st Contact Info) Description 04/27/2025 11:00 AM EST Procedure Visit [facility] [address] [place] [address] Mignon Tolentino MD [address] [place], [place] [phone] Scheduled Orders Name Type Priority Associated Diagnoses Orde r Schedule Hepatic Function Panel Lab Routine Gender dysphoria in adult Expected: 03/06/2025 (Approximate), Expires: 03/06/2026 Lipid Panel, Standard Lab Routine Dyslipidemia Expected: 03/06/2025 (Approximate), Expires: 03/06/2026 Hemoglobin A1c Lab Routine Gender dysphoria in adult Expected: 03/06/2025 (Approximate), Expires: 03/06/2026 Basic Metabolic Panel Lab Routine Gender dysphoria in adult Expected: 03/06/2025 (Approximate), Expires: 03/06/2026 CBC auto differential Lab Routine Iron deficiency anemia due to chronic blood loss Expected: 03/06/2025 (Approximate), Expires: 03/06/2026 Ferritin Lab Routine Iron deficiency anemia due to chronic blood loss Expected: 03/06/2025, Expires: 03/06/2026 TSH with Reflex to Free T4 Lab Routine Iron deficiency anemia due to chronic blood loss Expected: 03/06/2025 (Approximate), Expires: 03/06/2026 Iron And Total Iron Binding Capacity Lab Routine Iron deficiency anemia due to chronic blood loss Expected: 03/06/2025, Expires: 03/06/2026 Vitamin B12 (Cobalamin) and Folate Panel, Serum Lab Routine Iron deficiency anemia due to chronic blood loss Expected: 03/06/2025, Expires: 03/06/2026 documented as of this encounter Visit Diagnoses Diagnosis Gender dysphoria in adult- Primary Recurrent major depressive disorder, in partial remission (CMS/HCC) Iron deficiency anemia due to chronic blood loss Iron deficiency anemia secondary to blood loss (chronic) Dyslipidemia Other and unspecified hyperlipidemia Marijuana dependence (HCC) Cannabis dependence, unspecified abuse Overweight Dietary counseling Dietary surveillance and counseling Exercise counseling Encounter for immunization Preventative health care Routine general medical examination at a health care facility Anxiety Anxiety state, unspecified Posttraumatic stress disorder documented in this encounter Additional Health Concerns Assessment Noted Time PHQ-9 Depression Total Score: 9 03/09/20 25 11:56 AM EST documented as of this encounter Care Teams Attendant Lodging Facilities Relationship Specialty Start Date End Date Mignon Tolentino MD [address] [place] [address] PCP - General Family Medicine 04/19/18 documented as of this encounter
--- OUTSIDE RECORDS SUMMARY | 2025-03-09 12:43 | XMS_ITS | Encounter Summary ---
Author Organization [employer] Address [address] [place] [address] [place] [address] Care Team Providers Care Straightedge Machine Operator Helper Name Role Phone Mignon Tolentino MD Primary Care Provider +1- [phone] Reason for Visit * Reason Onset Date Comments Med Refill 11/03/2023 Encounter Details Date Type Department Care Team (Late Contact Info) Description 11/03/2023 Refill [facility] [address] [place] [address] [phone] Jenny James MD [address] [place] [address] [phone] Gender dysphoria in adult Social History Tobacco Use Types Packs/Day Years Used Date Smoking Tobacco: Some Days Cigarettes Smokeless Tobacco: Former Alcohol Use Standard Drinks/Week Comments Never 0 (1 standard drink = 0.6 oz pur e alcohol) Comments Unknown Sex and Gender Information Value Date Recorded Sex Assigned at Female 02/16/2022 10:30 AM EDT Legal Sex Male 10:30 AM EDT Gender Identity Transgender Male 02/16/2022 10:3 0 AM EDT Sexual Orientation Choose not to disclose 2021 10:30 AM EDT documented as of this encounter Plan of Treatment Upcoming Encounters Date Type Department Care Team (Late Contact Info) Description 04/27/2025 11:00 AM EST Procedure Visit [facility] [address] [place] [address] [phone] Mignon Tolentino MD [address] [place], [place] [phone] documented as of this encounter Visit Diagnoses Diagnosis Gender dysphoria in adult documented in this encounter Care Teams Straightedge Machine Operator Helper Relationship Specialty Start Date End Date Mignon Tolentino MD [address] [place] [address] PCP - General Family Medicine 04/19/18 documented as of this encounter
--- OUTSIDE RECORDS SUMMARY | 2025-03-09 12:43 | XMS_ITS | Encounter Summary ---
Author Organization [employer] Address [address] [facility] 7t [place] [address] Care Team Providers Care Taco Maker Name Role Phone Mignon Tolentino MD Primary Care Provider +1- [phone] Encounter Details Date Type Department Care Team (Late st Contact Info) Description 05/30/2024 Orders Only [facility] [address] [place] [address] [phone] Mignon Tolentino MD [address] [place] [address] [phone] Social History Tobacco Use Types Packs/Day Years [...] Description 04/27/2025 11:00 AM EST Procedure Visit [facility] [address] [place] [address] [phone] Mignon Tolentino MD [address] [place] [address] [phone] documented as of this encounter Visit Diagnoses Not on filedocumented in this encounter Care Teams Taco Maker Relationship Specialty Start Date End Date Mignon Tolentino MD [address] [place] [address] PCP - General Family Medicine 04/19/18 documented as of this encounter
--- OUTSIDE RECORDS SUMMARY | 2025-03-09 12:43 | XMS_ITS | Encounter Summary ---
Author Organization [employer] Address [address] [facility] 7t [place] [address] Care Team Providers Care Excelsior Machine Feeder Name Role Phone Mignon Tolentino MD Primary Care Provider +1- [phone] Reason for Visit * Reason Onset Date Comments Lab Orders 03/07/2025 Encounter Details Date Type Department Care Team ([facility] Contact Info) Description 03/07/2025 Telephone [facility] [address] [place], [place] [phone] Mignon Tolentino MD [address] [place], [place] [phone] Lab Orders Social History Tobacco Use Types Packs/Day Years [...] AM EDT documented as of this encounter Miscellaneous Notes * Telephone Encounter - Gillian Odom MA - 03/07/2025 3:53 PM EST I spoke with the pt that he need to do blood work before the appointment. documented in this encounter Plan of Treatment Upcoming Encounters Date Type Department Care Team (Late st Contact Info) Description 04/27/2025 11:00 AM EST Procedure Visit [facility] [address] [place] [address] Mignon Tolentino MD [address] [place] [address] documented as of this encounter Visit Diagnoses Not on filedocumented in this encounter Care Teams Excelsior Machine Feeder Relationship Specialty Start Date End Date Mignon Tolentino MD [address] [place] [address] [phone] PCP - General Family Medicine 04/19/18 documented as of this encounter
--- OUTSIDE RECORDS SUMMARY | 2025-03-09 12:43 | XMS_ITS | Encounter Summary ---
Author Organization [employer] Address [address] 7t [place] [address] Care Team Providers Care China Decorator Name Role Phone Mignon Tolentino MD Primary Care Provider +1- [phone] Reason for Visit * Reason Onset Date Comments chartprep 03/08/2025 Encounter Details Date Type Department Care Team ([facility] st Contact Info) Description 03/08/2025 Telephone [facility] [address] [place], [place] [phone] Mignon Tolentino MD [address] [place], [place] [phone] chartprep Social History Tobacco Use Types Packs/Day Years [...] Telephone Encounter - Gillian Odom MA - 03/08/2025 3:57 PM EST ..Chart Prep Labs: not done Images: not applicable Vaccines due: Covid Due, PCV20 Due, and Flu Due Referrals: Not Applicable Screenings: Not Applicable Overdue care gaps: Sbirt, SDOH, PHQ9, GAD7, Disability , and Oral Health documented in this encounter Plan of Treatment Upcoming Encounters Date Type Department Care Team (Late st Contact Info) Description 04/27/2025 11:00 AM EST Procedure Visit [facility] [address] [place] [address] Mignon Tolentino MD [address] [place] [address] documented as of this encounter Visit Diagnoses Not on filedocumented in this encounter Care Teams China Decorator Relationship Specialty Start Date End Date Mignon Tolentino MD [address] [place] [address] PCP - General Family Medicine 04/19/18 documented as of this encounter
--- OUTSIDE RECORDS SUMMARY | 2025-03-09 12:43 | XMS_ITS | Encounter Summary ---
Author Organization [employer] Address [address] [place] [address] [place] [address] Care Team Providers Care Shale Miner Name Role Phone Mignon Tolentino MD Primary Care Provider +1- [phone] Reason for Visit * Reason Onset Date Comments Med Refill 06/01/2024 Encounter Details Date Type Department Care Team (Late st Contact Info) Description 06/01/2024 Refill [facility] [address] [place] [address] [phone] Jenny James MD [address] [place] [address] [phone] Gender dysphoria in adult Social History Tobacco [...] 04/27/2025 11:00 AM EST Procedure Visit [facility] [address] [place] [address] [phone] Mignon Tolentino MD [address] [place], [place] [phone] documented as of this encounter Visit Diagnoses Diagnosis Gender dysphoria in adult documented in this encounter Care Teams Shale Miner Relationship Specialty Start Date End Date Mignon Tolentino MD [address] [place] [address] PCP - General Family Medicine 04/19/18 documented as of this encounter
--- OUTSIDE RECORDS SUMMARY | 2025-03-09 12:43 | XMS_ITS | Encounter Summary ---
Author Organization [employer] Address [address] 7[address] [place] [address] Care Team Providers Care It Program Auditor Name Role Phone Mignon Tolentino MD Primary Care Provider +1- [phone] Encounter Details Date Type Department Care Team ([facility] Contact Info) Description 03/06/2025 Telephone [facility] [address] [place] [address] [phone] Mignon Tolentino MD [address] [place], [place] [phone] Social History Tobacco Use Types Packs/Day Years [...] encounter Miscellaneous Notes * Telephone Encounter - Mignon Tolentino MD - 03/06/2025 5:45 PM EST Please ask Yosi to come in for fasting labs before his apt Wednesday if he is able. I placed lab order. Thank you. documented in this encounter Plan of Treatment Upcoming Encounters Date Type Department Care Team (Late st Contact Info) Description 04/27/2025 11:00 AM EST Procedure Visit [facility] [address] [place] [address] Mignon Tolentino MD [address] [place] [address] documented as of this encounter Visit Diagnoses Not on filedocumented in this encounter Care Teams It Program Auditor Relationship Specialty Start Date End Date Mignon Tolentino MD [address] [place] [address] [phone] PCP - General Family Medicine 04/19/18 documented as of this encounter
--- OUTSIDE RECORDS SUMMARY | 2025-03-09 12:43 | XMS_ITS | Encounter Summary ---
Author Organization [employer] Address [address] [facility] 7t [place] [address] Care Team Providers Care Oriental Rug Repairer Name Role Phone Mignon Tolentino MD Primary Care Provider +1- [phone] Encounter Details Date Type Department Care Team (Late st Contact Info) Description 03/30/2022 Orders Only [facility] [address] [place] [address] [phone] Aracelis Turpin MD [address] [place] [address] [phone] Gender dysphoria (Primary Dx) Social History Tobacco Use Types Packs/Day Years Used Date Smoking Tobacco: Never Assessed Comments Unknown Sex and Gender Information Value Date Recorded Sex Assigned at Female 02/16/2022 10:30 AM EDT Legal Sex Male 10:30 AM EDT Gender Identity Transgender Male 02/16/2022 10:3 0 AM EDT Sexual Orientation Choose not to disclose 2021 10:30 AM EDT COVID-19 Exposure Response Date Recorded In the last 10 days, have yo u been in contact with someone who was confirmed or suspected to have Coronavirus/COVID-19? No / Unsure 03/30/2022 3:14 PM EST documented as of this encounter Plan of Treatment Upcoming Encounters Date Type Department Care Team (Late st Contact Info) Description 04/27/2025 11:00 AM EST Procedure Visit [facility] [address] [place] [address] [phone] Mignon Tolentino MD [address] [place] [address] [phone] documented as of this encounter Visit Diagnoses Diagnosis Gender dysphoria- Primary documented in this encounter Care Teams Oriental Rug Repairer Relationship Specialty Start Date End Date Mignon Tolentino MD [address] [place], [place] [phone] PCP - General Family Medicine 04/19/18 documented as of this encounter
--- OUTSIDE RECORDS SUMMARY | 2025-03-09 12:43 | XMS_ITS | Encounter Summary ---
Author Organization [employer] Address [address] [place] [address] 7 [place] [address] Care Team Providers Care Technician Automatic Name Role Phone Mignon Tolentino MD Primary Care Provider +1- [phone] Reason for Visit * Reason Onset Date Comments Med Refill 10/08/2023 Encounter Details Date Type Department Care Team (Late Contact Info) Description 10/08/[address] [facility] [address] [place] [address] [phone] Jenny James MD [address] [place] [address] [phone] Gender dysphoria in adult Social History Tobacco [...] Description 04/27/2025 11:00 AM EST Procedure Visit [facility] [address] [place] [address] [phone] Mignon Tolentino MD [address] [place], [place] [phone] documented as of this encounter Visit Diagnoses Diagnosis Gender dysphoria in adult documented in this encounter Care Teams Technician Automatic Relationship Specialty Start Date End Date Mignon Tolentino MD [address] [place] [address] PCP - General Family Medicine 04/19/18 documented as of this encounter
--- OUTSIDE RECORDS SUMMARY | 2025-03-09 12:43 | XMS_ITS | Encounter Summary ---
Author Organization [employer] Address [address] [facility] 7t [place] [address] Care Team Providers Care Proposal Manager Name Role Phone Mignon Tolentino MD Primary Care Provider +1- [phone] Encounter Details Date Type Department Care Team (Late st Contact Info) Description 05/05/2022 Abstract [facility] [address] [place] [address] [phone] Mignon Tolentino MD [address] [place] [address] [phone] Social History Tobacco Use Types Packs/Day Years [...] Description 04/27/2025 11:00 AM EST Procedure Visit [facility] [address] [place] [address] [phone] Mignon Tolentino MD [address] [place] [address] [phone] documented as of this encounter Procedures Procedure Name Priority Date/Time Associated Diagnosis Comments PAP SMEAR Routine 05/26/2019 12:00 AM EST documented in this encounter Results * Pap Smear (05/26/2019 12:00 AM EST) Swab us Historical Provider LAB CYTOLOGY ORDERABLES F inal Result [facility] [address] [place] [address] [phone] documented in this encounter Visit Diagnoses Not on filedocumented in this encounter Care Teams Proposal Manager Relationship Specialty Start Date End Date Mignon Tolentino MD [address] [place] [phone] PCP - General Family Medicine 04/19/18 documented as of this encounter
--- OUTSIDE RECORDS SUMMARY | 2025-03-09 12:43 | XMS_ITS | Encounter Summary ---
Author Organization [employer] Address [address] [facility] 7 [place] [address] Care Team Providers Care Lining Presser Name Role Phone Mignon Tolentino MD Primary Care Provider +1- [phone] Reason for Visit * Reason Onset Date Comments Med Refill 10/08/2023 Encounter Details Date Type Department Care Team (Late Contact Info) Description 10/08/2023 Refill [facility] [address] [place] [address] [phone] Mignon Tolentino MD [address] [place] [address] [phone] Gender dysphoria in adult Social History Tobacco [...] Description 04/27/2025 11:00 AM EST Procedure Visit [facility] [address] [place] [address] [phone] Mignon Tolentino MD [address] [place], [place] [phone] documented as of this encounter Visit Diagnoses Diagnosis Gender dysphoria in adult documented in this encounter Care Teams Lining Presser Relationship Specialty Start Date End Date Mignon Tolentino MD [address] [place] [address] PCP - General Family Medicine 04/19/18 documented as of this encounter
--- OUTSIDE RECORDS SUMMARY | 2025-03-09 12:43 | XMS_ITS | Encounter Summary ---
Author Organization [employer] Address 75 [facility] 7 [place] [address] Care Team Providers Care Assistant Wrestling Coach Name Role Phone Mignon Tolentino MD Primary Care Provider +1- [phone] Reason for Visit * Reason Onset Date Comments Med Refill 07/11/2024 Encounter Details Date Type Department Care Team (Late Contact Info) Description 07/11/2024 Refill [facility] [address] [place] [address] [phone] Mignon Tolentino MD [address] [place] [address] [phone] Gender dysphoria in adult Social History Tobacco [...] Description 04/27/2025 11:00 AM EST Procedure Visit [facility] [address] [place] [address] [phone] Mignon Tolentino MD [address] [place], [place] [phone] documented as of this encounter Visit Diagnoses Diagnosis Gender dysphoria in adult documented in this encounter Care Teams Assistant Wrestling Coach Relationship Specialty Start Date End Date Mignon Tolentino MD [address] [place] [address] PCP - General Family Medicine 04/19/18 documented as of this encounter
--- OUTSIDE RECORDS SUMMARY | 2025-03-09 12:43 | XMS_ITS | Encounter Summary ---
Author Organization [employer] Address [address] [place] [address] 7 [place] [address] Care Team Providers Care Security Vehicle Patrol Officer Name Role Phone Mignon Tolentino MD Primary Care Provider +1- [phone] Reason for Visit * Reason Onset Date Comments Med Refill 01/11/2025 Encounter Details Date Type Department Care Team (Late Contact Info) Description 01/11/2025 Refill [facility] [address] [place] [address] [phone] Jenny James MD [address] [place] [address] [phone] Social History Tobacco Use Types Packs/Day Years [...] Description 04/27/2025 11:00 AM EST Procedure Visit [facility] [address] [place] [address] [phone] Mignon Tolentino MD [address] [place], [place] [phone] documented as of this encounter Visit Diagnoses Not on filedocumented in this encounter Care Teams Security Vehicle Patrol Officer Relationship Specialty Start Date End Date Mignon Tolentino MD [address] [place] [phone] PCP - General Family Medicine 04/19/18 documented as of this encounter
--- OUTSIDE RECORDS SUMMARY | 2025-03-09 12:43 | XMS_ITS | Clinical Summary ---
Author Organization [employer] Address [address] [facility] [address] 7t [place] [address] Care Team Providers Care Executive Officer Name Role Phone Mignon Tolentino MD Primary Care Provider +1- [phone] Allergies No known active allergies Medications * This document contains information received from the source organization and may not represent a complete record from that organization. Sharps Container (Sharps Property Appraiser) misc 1 Units every 14 (fourteen) days. Dispose used sharps into container. 1 each 2 08/06/19 24 Active Syringe, Disposable, (Syringe 2-3 ML) 3 ML misc 1 each every 14 (fourteen) days. 24 each 08/06/19 24 Active Alcohol Swabs (Alcohol Pads) 70 % padsIndicatio ns:Gender dysphoria in adult 2 each every 14 (fourteen) days. Use on skin before injection 100 each 5 06/13/19 25 Active Insulin Syringe/Needl e (UltiCare Insulin Syringe) 28G X 1/2 1 ML miscIndicatio ns:Gender dysphoria in adult Use to inject testosterone 25 each 06/13/19 25 Active Syringe/Needl e, Disp, (B-D 3CC LUER-ESTHELA SYR 25GX1 ) 25G X 1 3 ML miscIndicatio ns:Gender dysphoria in adult USE TO INJECT ONCE EVERY 2 WEEKS 24 each 06/13/19 25 Active testosterone cypionate (Depo-Testost erone) 200 MG/ML injectionIndi cations:Gende r dysphoria in adult INJECT 0.5ML INTO THE SHOULDER, THIGH OR BUTTOCKS EVERY 14 DAYS 1 mL 3 08/15/19 Active ferrous sulfate (Fe Tabs) 325 (65 Fe) MG EC tabletIndicat ions:Iron deficiency anemia due to chronic blood loss Take 1 tab po bid with food. Do not crush, chew, or split. 60 tablet 2 03/09/20 Active ferrous sulfate (Fe Tabs) 325 (65 Fe) MG EC tablet Take 1 tab po bid with food. Do not crush, chew, or split. 60 tablet 2 05/12/19 025 Discontinued(R eorder (will not trigger notification to Pharmacy)) Active Problems Problem Noted Date Diagnosed Date Marijuana dependence 03/09/2025 Overview (03/09/2025): Likely exacerbated by uncontrolled depression and anxiety. Behavior health referral placed 03/09/25 Assessment & Plan (03/09/2025 12:16 PM EST): Likely exacerbated by uncontrolled depression and anxiety. Behavior health referral placed 03/09/25 Recurrent major depressive disorder, in partial remission 03/09/2025 Overview (03/09/2025): Pt was hospitalized in Mar 2020 for respite. Denies suicidial or homacidial ideation. Therapist and psychiatrist offered. -referral to behavior health done 03/09/25 Assessment & Plan (03/09/2025 12:16 PM EST): Pt was hospitalized in Mar 2020 for respite. Denies suicidial or homacidial ideation. Therapist and psychiatrist offered. -referral to behavior health done 03/09/25 Orders: Referral to Behavioral Health; Future Anxiety 03/09/2025 Assessment & Plan (03/09/2025 12:16 PM EST): Preventative health care 11/18/2022 Overview (03/09/2025): -next physical exam due after 03/09/26 -eye care facilitated by [facility] -dental home is none, encouraged 05/10/23 -health care proxy filed 03/09/25 Assessment & Plan (03/09/2025 12:16 PM EST): -next physical exam due after 03/09/26 -eye care facilitated by [facility] -dental home is none, encouraged 05/10/23 -health care proxy filed 03/09/25 Assessment & Plan (05/10/2023 10:26 AM EST): -next physical exam due after 05/10/24 -eye care facilitated by [facility] -dental home is none, encouraged 05/10/23 -health care proxy paperwork given 05/10/23 Posttraumatic stress disorder 03/24/2022 Overview (03/09/2025): Pt was hospitalized in Mar 2020 for respite. Has psych and therpagy. Denies JESSICA. Assessment & Plan (03/09/2025 12:16 PM EST): Anemia 09/30/2021 Overview (03/09/2025): Severe. Hgb 6.2 in 04/2020. Liley due to heavy menses. - s/p blood transfusion - he reports a FMHx of anemia. Referred to hematology in past but did not follow up. Lab Results Component Value Date FERRITIN 3 (L) 05/10/2023 HGB 10.3 (L) 05/10/2023 HGB 8.8 (L) 06/13/2020 HEMATOCRIT 28.3 (L) 06/13/2020 Overdue for follow up. Labs ordered. Assessment & Plan (03/09/2025 12:16 PM EST): Severe. Hgb 6.2 in 04/2020. Liley due [...] food. Do not crush, chew, or split. Assessment & Plan (05/10/2023 10:24 AM EST): Severe. Hgb 6.2 in 04/2020 - s/p blood transfusion - he reports a FMHx of anemia. Referred to hematology in past but not currently active. Reports menses now normal as of 05/10/23 Unable to tolerate PO iron. . Lab Results Component Value Date HGB 8.8 (L) 06/13/2020 HEMATOCRIT 28.3 (L) 06/13/2020 Gender dysphoria in adult 09/30/2021 Overview (03/09/2025): Yosi meets DSM-5 criteria for gender dysphoria. He has expressed a persistent and well-documented experience of incongruence between their gender identity and assigned sex at . Yosi has has demonstrated capacity to make informed decisions regarding hormone therapy. He is aware of the potential risks, benefits, and irreversible effects of treatment. Yosi has no contraindications identified for initiating hormone therapy. -education reviewed: we reviewed our informed consent that includes expected physical changes, timeline, and irreversible effects; we reviewed fertility preservation options; patient declined/pursued sperm/egg banking -discussed need for contraception if with [...] modification with exercise and diet for dyslipidemia Assessment & Plan (03/09/2025 12:16 PM EST): Yosi meets DSM-5 criteria for gender dysphoria. He has expressed a persistent and well-documented experience of incongruence between their gender identity and assigned sex at . Yosi has has demonstrated capacity to make informed decisions regarding hormone therapy. He is aware of the potential risks, benefits, and irreversible effects of treatment. Yosi has no contraindications identified for initiating hormone therapy. -education reviewed: we reviewed our informed consent that includes expected physical changes, timeline, and irreversible effects; we reviewed fertility preservation options; patient declined/pursued sperm/egg banking -discussed need for contraception if with [...] Hemoglobin A1c; Future Basic Metabolic Panel; Future Assessment & Plan (05/10/2023 10:25 AM EST): -He/him pronouns -Name legally changed to Yosi -Wantes to restart testosterone. Self d/c due to life stressor and difficulty getting Rx -start testosterone cypionate 0.5ml q 2 weeks 05/10/23 and check labs in 1 month -continue lifestyle modification with exercise and diet for dyslipidemia -s/p reconstruction surgery August [address] Lind reestablish with therapist - referring for phalloplasty after therapist letter Resolved Problems Problem Noted Date Diagnosed Date Resolved Date Iron deficiency anemia due t o chronic blood loss 01/18/2023 03/09/2025 Assessment & Plan (03/09/2025 12:16 PM EST): Severe. Hgb 6.2 in 04/2020. Liley due [...] food. Do not crush, chew, or split. Abnormal vaginal bleeding 09/30/2021 Overview (05/10/2023): reports normal menses 05/10/23 Encounters Date Type Department Care Team Description 03/09/2025 11:00 AM EST Office Visit [address] [phone] Mignon Tolentino MD Gender dysphoria in adult (Primary Dx); Recurrent major depressive disorder, in partial remission (CMS/HCC); Iron deficiency anemia due to chronic blood loss; Dyslipidemia; Marijuana dependence ([facility]); Overweight; Dietary counseling; Exercise counseling; Encounter for immunization; Preventative health care; Anxiety; Posttraumatic stress disorder 03/08/[address] [address] Mignon Tolentino MD chartprep 03/07/[address] [address] Mignon Tolentino MD Lab Orders 03/06/2025 Telephone [facility] [address] [place] [phone] Mignon Tolentino MD 03/01/2025 Patient Outreach [address] [address] Mignon Tolentino MD Pre-visit Planning (Pre-visit planning - LVM ) 01/12/2025 Travel 01/12/[address] [address] Mignon Tolentino MD Appointment Request 01/11/[address] [address] Mignon Tolentino MD 01/11/2025 Orders Only [address] [address] Mignon Tolentino MD Iron deficiency anemia due to chronic blood loss (Primary Dx); Gender dysphoria in adult; Dyslipidemia 01/11/2025 Refill [facility] [address] [place] [address] Jenny James MD 01/11/2025 Refill [facility] [address] [place] [address] Mignon Tolentino MD Gender dysphoria in adult from Last 3 Months Immunizations Immunization Administration Dates Next Due DTP 03/04/1995, 5,05/21/1994,11/27 DTaP / IPV 1993 DTaP, 5 pertussis antigens 02/17/1998,,07/18/1994,05/20,1993 HPV 9-Valent 01/15/2009 HPV, Quadrivalent 10/14/2012 HPV, Unspecified 08/04/2011,03/10/2011 Hep A, Adult 01/15/2009 Hep A, ped/adol, 2 dose 01/11/2007 Hep B, Unspecified 12/30/1994,1993, 994 Hep B, adult 12/30/1997,1993 HiB, unspecified 09/03/1994, 5,07/22/1994,07/18,05/21/1994,05/20/1994,1993 Hib (PRP-T) 08/27/1997,1993 IPV 03/04/1995, 5,07/22/1994,05/20 Influenza injectable quadriv alent IIV4 with preservative 01/31/2018,01/13/2017,03/10/2011,03/05 Influenza injectable quadriv alent preservative free 05/10/2023,01/19/2019,03/20/2016 Influenza, seasonal, injecta ble, preservative free 03/09/2025 MMR 08/27/1997,09/03/1994,08/27/1994 Meningococcal MCV4P ACYW-135 01/19/2019,01/12/20 07 Moderna Covid-19 Vaccine 12+ 08/04/2020,07/08/19 21 OPV, Trivalent 03/04/1995, 5,05/21/1994,11/27 Pfizer Covid-19 Vaccine 12+ 03/09/2025, 4 Pneumococcal Conjugate PCV 20 03/09/2025 Tdap 05/24/2024,12/16/2015,12/24/2005 Varicella 03/10/2011,03/04/2009 Family History Medical History Relation Name Comments Diabetes Maternal Grandmother Hypertension Mother Bone cancer Mother's Sister Relation Name Status Comments Maternal Grandmother Mother Mother's Sister Social History Tobacco Use Types Packs/Day Years Used Date Smoking Tobacco: Some Days Cigarettes Smokeless Tobacco: Former Tobacco Cessation:Ready to Q uit: Not Asked Alcohol Use Standard Drinks/Week Comments Never 0 (1 standard drink = 0.6 oz pur e alcohol) Depression Answer Date Recorded Patient Health Questionnaire-9 Score 9 03/09/2025 Patient Health Questionnaire-9 Score 9 03/09/2025 Last PHQ-9: Questionnaire Data Not on file 1 05/09/2024 Housing Stability Answer Date Recorded What is your housing situation today? I have nessarob morales 03/09/[address] you [...] not to disclose 2021 10:30 AM EDT Last Filed Vital Signs Vital Sign Reading [...] Mass Index 25.13 03/09/2025 11:27 AM EST Plan of Treatment Upcoming Encounters Date Type Department Care Team (Late st Contact Info) Description 04/27/2025 11:00 AM EST Procedure Visit [facility] [address] [place] [address] Mignon Tolentino MD [address] [place] [address] Health Maintenance Due Date Last Done Comments Family Planning (PISQ) 2008 Cervical Cancer Screening 05/26/2022 HPV/Cotest 05/26/2022 Pap Smear 05/26/2022 05/26/2019 Depression Monitoring 09/06/2025 03/09/2025, 025 Alcohol/Substance Use Screening 03/09/2026 03/09/2025 Disability Screening 03/09/2026 03/09/2025 SDOH Screening 03/09/2026 03/09/2025 Tobacco Screening 03/09/2026 03/09/2025 Lipid Panel 05/10/2028 05/10/2023, 06/13/2020 DTaP/Tdap/Td Vaccines (9 - Td or Tdap) 05/24/2034 05/24/2024, 12/16/2015, 12/24/2005, Additional history exists Zoster Vaccines (1 of 2) 08/27/2043 RSV Patients and Patients Aged 60 years or older (1 - 1-dose 75+ series) 2068 IPV Vaccines Completed 03/04/1995, 02/17, 02/22/1995, Additional history exists HIB Vaccines Completed 08/27/1997, 08/17, 08/17/1994, Additional history exists Hepatitis B Vaccines Completed 12/30/1997, 12/30/1994, 1993, Additional history exists Hepatitis A Vaccines Completed 01/15/2009, 01/12/20 07 HPV Vaccines Completed 10/14/2012, 07/18, 03/10/2011, Additional history exists Meningococcal Vaccine Aged Out 01/19/2019, 007 No longer eligible based on patient's age to complete this topic HIV Screening Completed 05/10/2023 Hepatitis C Screening Completed 05/10/2023 COVID-19 Vaccine Completed 03/09/2025, , 08/04/2020, Additional history exists Influenza Vaccine Completed 03/09/2025, , 01/19/2019, Additional history exists Pneumococcal Vaccine: Pediatrics (0 to 5 Years) and At-Risk Patients (6 to 49) Years Completed 03/09/2025 Meningococcal B Vaccine Aged Out No l onger eligible based on patient's age to complete this topic RSV under 20 months Aged Out No longe r eligible based on patient's age to complete this topic Rotavirus Vaccines Aged Out No longer eligible based on patient's age to complete this topic Procedures Procedure Name Priority Date/Time Associated Diagnosis Comments HEPATITIS C AB W/REFL TO HCV RNA, QN, PCR Routine 05/10/2023 10:05 AM EST Encounter for hepatitis C screening test for low risk patient HIV 1/2 ANTIGEN/ANTIBODY, FOURTH GENERATION W/RFL Routine 05/10/2023 10:05 AM EST Routine screening for STI (sexually transmitted infection) LIPID PANEL, STANDARD Routine 05/10/2023 10:05 AM EST Gender dysphoria in adult PAP SMEAR Routine 05/26/2019 12:00 AM EST from Last 3 Months or Most Recently Relevant to Health Maintenance Results * Hepatitis C Antibody with Reflex to HCV, RNA, Quantitative, Real-Time PCR (05/10/2023 10:05 AM EST) Hepatitis C Antibody Nonreactive Nonreactive [facility] Comment:Antibodies to HCV no t detected; does not exclude early acuteHCV infection. Blood Venous blood specimen / Unknown 05/10/2023 10:05 AM EST 05/10/2023 1:17 PM EST Mignon Tolentino MD LAB BLOOD ORDERABLES Final Result Performing Organization Address [facility]/ZIP Co de Phone Number [facility] [address] [place] [phone] * HIV-1/2 Antigen and Antibodies, Fourth Generation, with Reflexes (05/10/2023 10:05 AM EST) HIV AB/AG Nonreactive Nonreactive [facility] Comment:HIV-1 p24 Ag and/or HIV-1/HIV-2 Ab not detected.A test result that is nonreactive does not exclude thepossibility of exposure to or infection with HIV-1 and/orHIV-2. Nonreactive results in this assay for individualswith prior exposure to HIV-1 and/or HIV-2 may be due toantigen and antibody levels that are below the limit ofdetection of this assay.The ECO-GEN EnergyniZite HIV Ag/Ab Combo assay result andsupplemental assay results should be interpreted inconjunction with the patient's clinical presentation,history and other laboratory results. If the results areinconsistent with clinical evidence, additional testing issuggested to confirm the result. Blood Venous blood specimen / Unknown 05/10/2023 10:05 AM EST 05/10/2023 1:17 PM EST Mignon Tolentino MD LAB BLOOD ORDERABLES Final Result [facility] [address] [place] [address] [phone] * (ABNORMAL) Lipid Panel, Standard (05/10/2023 10:05 AM EST) Triglycerides 136 <150 mg/dL [facility] Comment:Desirable Triglyceri de: less than 150 mg/dLBorderline High Triglyceride 150-199 mg/dLHigh Triglyceride: 200-499 mg/dLVery High Triglyceride: greater than or equal to 5OO mg/dL Cholesterol 218(H) <200 mg/dL [facility] Comment:Desirable Cholestero l: less than 200 mg/dLBorderline High Cholesterol: 200-239 mg/dLHigh Cholesterol: greater than 239 mg/dL LDL Cholesterol Calculated 145(H) <100 mg/dL [facility] Comment:Desirable LDL: less than 100 mg/dLNear Optimal/Above Optimal LDL: 110- 129 mg/dLBorderline High LDL: 130-159 mg/dLHigh LDL: 160-189 mg/dLVery High LDL: greater than or equal to 190 mg/dL HDL Cholesterol 46 >40 mg/dL [facility] Comment:Desirable HDL: great er than 40 mg/dL Note: This HDL assay may give artificially low results in patients with liver disease. Blood Venous blood specimen / Unknown 05/10/2023 10:05 AM EST 05/10/2023 1:20 PM EST Mignon Tolentino MD LAB BLOOD ORDERABLES Final Result Performing Organization Address [facility] Co de Phone Number [facility] [address] [place] [phone] * Pap Smear (05/26/2019 12:00 AM EST) Swab Historical Provider LAB CYTOLOGY ORDERABLES F inal Result Performing Organization Address [facility] Co de Phone Number [facility] [address] [place] [address] [phone] from Last 3 Months or Most Recently Relevant to Health Maintenance Insurance [facility] STANDARD Care Teams Executive Officer Relationship Specialty Start Date End Date Bland, MD Mignon [address] [place] [phone] PCP - General Family Medicine 04/19/18
--- OUTSIDE RECORDS SUMMARY | 2025-03-09 12:43 | XMS_ITS | Encounter Summary ---
Author Organization [employer] Address [address] [place] [address] 7 [place] [address] Care Team Providers Care Software Installer Name Role Phone Mignon Tolentino MD Primary Care Provider +1- [phone] Reason for Visit * Reason Onset Date Comments Med Refill 06/11/2024 Encounter Details Date Type Department Care Team (Late Contact Info) Description 06/11/2024 Refill [facility] [address] [place] [address] [phone] Mignon Tolentino MD [address] [place] [address] [phone] Gender dysphoria in adult Social History Tobacco [...] Description 04/27/2025 11:00 AM EST Procedure Visit [facility] [address] [place] [address] [phone] Mignon Tolentino MD [address] [place], [place] [phone] documented as of this encounter Visit Diagnoses Diagnosis Gender dysphoria in adult documented in this encounter Care Teams Software Installer Relationship Specialty Start Date End Date Mignon Tolentino MD [address] [place] [address] PCP - General Family Medicine 04/19/18 documented as of this encounter
--- OUTSIDE RECORDS SUMMARY | 2025-03-09 12:43 | XMS_ITS | Encounter Summary ---
Author Organization [employer] Address [address] [place] [address] 7 [place] [address] Care Team Providers Care Platform Material Handler Manager Name Role Phone Mignon Tolentino MD Primary Care Provider +1- [phone] Reason for Visit * Reason Onset Date Comments Med Refill 06/01/2024 Encounter Details Date Type Department Care Team (Late Contact Info) Description 06/01/2024 Refill [facility] [address] [place] [address] [phone] Mignon Tolentino MD [address] [place] [address] [phone] Gender dysphoria in adult Social History Tobacco [...] 04/27/2025 11:00 AM EST Procedure Visit [facility] [address] [place] [address] [phone] Mignon Tolentino MD [address] [place], [place] [phone] documented as of this encounter Visit Diagnoses Diagnosis Gender dysphoria in adult documented in this encounter Care Teams Platform Material Handler Manager Relationship Specialty Start Date End Date Mignon Tolentino MD [address] [place] [address] PCP - General Family Medicine 04/19/18 documented as of this encounter
--- OUTSIDE RECORDS SUMMARY | 2025-03-09 12:43 | XMS_ITS | Encounter Summary ---
Author Organization [employer] Address [address] [place] [address] 7 [place] [address] Care Team Providers Care Extrusion Press Supervisor Name Role Phone Mignon Tolentino MD Primary Care Provider [phone]- [phone] Reason for Visit * Reason Onset Date Comments Med Refill 07/07/2024 Encounter Details Date Type Department Care Team (Late Contact Info) Description 07/07/2024 Refill [facility] [address] [place] [address] [phone] Mignon Tolentino MD [address] [place] [address] [phone] Gender dysphoria in adult Social History Tobacco [...] 04/27/2025 11:00 AM EST Procedure Visit [facility] [address] [place] [address] [phone] Mignon Tolentino MD [address] [place], [place] [phone] documented as of this encounter Visit Diagnoses Diagnosis Gender dysphoria in adult documented in this encounter Care Teams Extrusion Press Supervisor Relationship Specialty Start Date End Date Mignon Tolentino MD [address] [place] [address] PCP - General Family Medicine 04/19/18 documented as of this encounter
--- OUTSIDE RECORDS SUMMARY | 2025-03-09 12:43 | XMS_ITS | Encounter Summary ---
Author Organization [employer] Address [address] [facility] [address] [place] [address] Care Team Providers Care Book Sorter Name Role Phone Mignon Tolentino MD Primary Care Provider [phone]- [phone] Reason for Visit * Reason Onset Date Comments Med Refill 08/12/2023 Encounter Details Date Type Department Care Team (Late Contact Info) Description 08/12/2023 Refill [facility] [address] [place] [address] [phone] Mignon Tolentino MD [address] [place] [address] [phone] Gender dysphoria in adult Social History Tobacco [...] Description 04/27/2025 11:00 AM EST Procedure Visit [facility] [address] [place] [address] [phone] Mignon Tolentino MD [address] [place], [place] [phone] documented as of this encounter Visit Diagnoses Diagnosis Gender dysphoria in adult documented in this encounter Care Teams Book Sorter Relationship Specialty Start Date End Date Mignon Tolentino MD [address] [place] [address] PCP - General Family Medicine 04/19/18 documented as of this encounter
[2025-03-09 13:01] LABS: MANUAL DIFF FLAG NO
[2025-03-09 13:03] LABS: Hematocrit 40.0 % (37.0-47.0); Hemoglobin 12.6 g/dl (12.0-16.0); Imm Gran Abs Auto 0.01 X10*3/uL (0.00-0.03); Imm Gran Pct Auto 0.2 % (0.0-0.4); Lymphocytes Absolute Auto 2.1 X10*3/uL (1.2-4.9); Mean Corpuscular HGB Conc 31.5 g/dl (31.0-35.0); Mean Corpuscular Hemoglobin 25.6 pg (27.0-33.0); Mean Corpuscular Volume 81.1 fL (80.0-98.0); NRBC Abs Auto 0.000 X10*3/uL (0.0-0.012); NRBC Pct Auto 0.0 /100WBC (0.0-0.2); Platelet Count 458 X10*3/uL (160-400); Red Blood Count 4.93 X10*6/uL (4.20-5.50); White Blood Count 4.8 X10*3/uL (4.8-10.8)
[2025-03-09 13:22] LABS: Anion Gap 11 (12-20)
[2025-03-09 13:33] LABS: Alanine Aminotransferase 11 U/L (0-31); Albumin Level 4.3 g/dL (3.5-5.0); Alkaline Phosphatase 55 U/L (39-117); Aspartate Amino Transferase 25 U/L (5-31); Blood Urea Nitrogen 10 mg/dL (9-16); Calcium 9.0 mg/dL (8.4-10.2); Carbon Dioxide 26 mmol/L (22-29); Chloride 106 mmol/L (96-108); Cholesterol 184 mg/dL (<200); Estimated Glomerular Filt Rate > 60; HDL Cholesterol 43 mg/dL (>40); Iron 39 mcg/dL (30-160); Percent Iron Saturation 14 % (15-50); Potassium 3.6 mmol/L (3.3-5.1); Sodium 139 mmol/L (135-145); Total Iron Binding Capacity 274 mcg/dL (228-428); Total Protein 7.6 g/dL (6.5-8.0); Triglycerides 116 mg/dL (<150); Unsaturated Iron Binding 235 ug/dL
[2025-03-09 13:59] LABS: Ferritin 6 ng/mL (10-122)
[2025-03-09 15:24] LABS: Folate 7.4 ng/mL (> or = 4.0); Vitamin B12 329 pg/mL (200-900)
== END 2025-03-09 12:09 | disposition home or self-care (01) ==
LOC: HO.HHCL 12:08
PROVIDERS: PCP Family Medicine; Visit Provider Family Medicine
DX: D50.0 Iron deficiency anemia secondary to blood loss (chronic) (principal); F64.0 Transsexualism; E78.5 Hyperlipidemia, unspecified
CPT/HCPCS: 36415; 80048; 80061; 80076; 82607; 82728; 82746; 83036; 83540; 84443; 85025